=== PATIENT | female | born 1940 | race Caucasian/White ===

== ENCOUNTER → 2016-10-07 | Outpatient (REF) | payer OTHER ==
[~2016-10-07] MED LIST: ACET50TAOT PO; ADVA115A INH; ALBU17IN INH; ASPI1TAB PO; CRES20TA PO; CRES5TAB PO; DRIS50002 PO; FERR325T69 PO; FLON1SPR; FOLI1TAB2 PO; HYDR-3713 PO; INSULANT SC; LEVO75TA4 PO; LISI20TA3 PO; LOPE2CA PO; LORA10TA2 PO; METH2.5TA PO; METO25TAB PO; OMEP20CA3 PO; PAXI30TA11 PO; SULF500T2 PO; TRAM50TA2 PO; VITA-121 PO; VOLT1GEL24 TD; ZOFR4TAB3 PO
== END ==
LOC: M LABDRAW1 17:25
PROVIDERS: ATTEND Physician Assistant
DX: E87.5 Hyperkalemia (principal)

== ENCOUNTER → 2016-11-13 | Outpatient (CLI) | payer OTHER ==
[2016-11-13 15:42] LABS: CALCIUM LEVEL 8.5 MG/DL (8.8-10.2); CREATININE FOR GFR 1.14 MG/DL (0.55-1.02); GLOMERULAR FILTRATION RATE 49.3 (>39); POTASSIUM SERUM 5.1 MEQ/L (3.5-5.1)
== END ==
LOC: M LAB 14:53
PROVIDERS: ATTEND Internal Medicine Endocrinology, Diabetes & Metabolism
DX: E87.5 Hyperkalemia (principal)

== ENCOUNTER → 2016-11-22 | Outpatient (CLI) | payer OTHER ==
[2016-11-22 18:15] LABS: CALCIUM LEVEL 8.6 MG/DL (8.8-10.2); CREATININE FOR GFR 1.2 MG/DL (0.55-1.02); GLOMERULAR FILTRATION RATE 46.5 (>39); POTASSIUM SERUM 4.9 MEQ/L (3.5-5.1)
== END ==
LOC: M LAB 15:19
PROVIDERS: ATTEND Family Medicine
DX: E87.5 Hyperkalemia (principal)

== ENCOUNTER → 2017-01-16 | Outpatient (CLI) | payer OTHER ==
--- NOTE | 2017-01-17 04:57 | REP ---
Clinical: Cirrhosis. Technique: Real time gomez scale evaluation using curved array transducer. Findings: The liver demonstrates fatty infiltration without focal hepatic lesion. The patient is status post cholecystectomy. No biliary ductal dilatation is appreciated and the common bile duct measures 6.9 mm diameter. The pancreas is normal in appearance. The right kidney is normal in reniform shape without hydronephrosis and measures 9.2 x 5.5 x 4.3 cm. No ascites. Impression: Fatty infiltration and hepatocellular disease without focal hepatic lesion. Signed by Damon Gao MD 01/17/2017 04:48 A
== END ==
LOC: M RAD 07:57
PROVIDERS: ATTEND Hospitalist
DX: K74.60 Unspecified cirrhosis of liver (principal)

== ENCOUNTER → 2017-01-21 | Outpatient (REF) | payer OTHER ==
[2017-01-21 20:45] LABS: CALCIUM LEVEL 8.7 MG/DL (8.8-10.2); CREATININE FOR GFR 1.25 MG/DL (0.55-1.02); GLOMERULAR FILTRATION RATE 44.4 (>39); POTASSIUM SERUM 5.1 MEQ/L (3.5-5.1)
== END ==
LOC: M SFHCLERA 16:12
PROVIDERS: ATTEND Family Medicine
DX: R60.0 Localized edema (principal)
CPT/HCPCS: 80048; G0463

== ENCOUNTER → 2017-01-30 | Outpatient (REF) | payer OTHER ==
[2017-01-30 17:08] LABS: MEAN CORPUSCULAR HEMOGLOBIN 29.3 pg (27.0-33.0); MEAN CORPUSCULAR HGB CONC 31.4 g/dl (32.0-36.5); MEAN CORPUSCULAR VOLUME 93.4 fl (80.0-96.0); RED CELL DISTRIBUTION WIDTH 15.4 % (11.5-14.5); WHITE BLOOD COUNT 6.1 K/mm3 (4.0-10.0)
[2017-01-30 17:20] LABS: ALBUMIN 3.6 GM/DL (3.2-5.2); BILIRUBIN,TOTAL 0.3 MG/DL (0.2-1.0); CALCIUM LEVEL 8.9 MG/DL (8.8-10.2); CREATININE FOR GFR 1.51 MG/DL (0.55-1.02); GLOMERULAR FILTRATION RATE 35.7 (>39); POTASSIUM SERUM 5.1 MEQ/L (3.5-5.1); TOTAL PROTEIN 7.2 GM/DL (6.4-8.2)
[2017-02-02 00:06] LABS: Lyme Disease IgG/IgM Antibodie <0.91 ISR (0.00-0.90); Lyme Disease IgM Ab Quantitati <0.80 index (0.00-0.79)
== END ==
LOC: M SFHCLERA 11:40
PROVIDERS: ATTEND Family Medicine
DX: R60.0 Localized edema (principal); E11.22 Type 2 diabetes mellitus with diabetic chronic kidney disease; E11.69 Type 2 diabetes mellitus with other specified complication; E03.9 Hypothyroidism, unspecified; I15.0 Renovascular hypertension; Z79.899 Other long term (current) drug therapy
CPT/HCPCS: 80053; 80061; 83036; 83880; 84443; 85027; 86617; G0463

== ENCOUNTER → 2017-02-03 | Outpatient (REF) | payer OTHER | LOC: M SFHCLERA 15:22 | PROVIDERS: ATTEND Family Medicine | DX: I15.0 Renovascular hypertension (principal) ==

== ENCOUNTER → 2017-07-03 | Outpatient (REF) | payer OTHER ==
[~2017-07-03] MED LIST changes: -FOLI1TAB2 PO; +FOLI1TAB4 PO; +VOLT1GEL15 TD; -VOLT1GEL24 TD
[2017-07-03 21:32] LABS: CREATININE FOR GFR 1.12 MG/DL (0.55-1.02); GLOMERULAR FILTRATION RATE 50.2 (>39); MAGNESIUM LEVEL 1.5 MG/DL (1.8-2.4)
[2017-07-03 21:38] LABS: POTASSIUM SERUM 5.2 MEQ/L (3.5-5.1)
== END ==
LOC: M SFHCLERA 16:13
PROVIDERS: ATTEND Family Medicine
DX: I10 Essential (primary) hypertension (principal)

== ENCOUNTER → 2017-07-29 | Outpatient (REF) | payer OTHER ==
[2017-07-29 19:06] LABS: CALCIUM LEVEL 8.7 MG/DL (8.8-10.2); CREATININE FOR GFR 0.99 MG/DL (0.55-1.02); GLOMERULAR FILTRATION RATE 57.9 (>39); MAGNESIUM LEVEL 1.1 MG/DL (1.8-2.4); POTASSIUM SERUM 4.9 MEQ/L (3.5-5.1)
== END ==
LOC: M SFHCLERA 13:30
PROVIDERS: ATTEND Family Medicine
DX: I10 Essential (primary) hypertension (principal)

== ENCOUNTER → 2017-08-04 | Outpatient (CLI) | payer OTHER ==
--- NOTE | 2017-08-04 09:07 | REP ---
Clinical: Cirrhosis. Comparison: 01/16/2017. Technique: Briseno scale ultrasound using curved array transducer. Findings: The liver demonstrates fatty infiltration and/or hepatocellular disease without focal hepatic lesion. The spleen is mildly enlarged measuring 12 cm in length without focal abnormality. The pancreas is normal in in appearance. Prior cholecystectomy. No biliary ductal dilatation is appreciated, and the common bile duct measures 6.6 mm diameter. The bilateral kidneys are normal in reniform shape without hydronephrosis. The right kidney measures 8.6 x 4.1 x 4.5 cm; the left kidney measures 10.9 x 4.5 x 5.3 cm. No ascites. Visualized portions of the abdominal aorta normal. Impression: 1. Liver demonstrates fatty infiltration and/or hepatocellular disease without focal hepatic lesion. 2. Spleen is mildly enlarged but otherwise normal in appearance. Signed by Damon Gao MD 08/04/2017 08:58 A
== END ==
LOC: M RAD 08:11
PROVIDERS: ATTEND Hospitalist
DX: K74.60 Unspecified cirrhosis of liver (principal); K21.9 Gastro-esophageal reflux disease without esophagitis; K58.8 Other irritable bowel syndrome

== ENCOUNTER → 2017-10-28 | Outpatient (CLI) | payer OTHER ==
[2017-10-28 12:18] LABS: HEMATOCRIT 30.6 % (36.0-47.0); MEAN CORPUSCULAR HEMOGLOBIN 26.5 pg (27.0-33.0); MEAN CORPUSCULAR HGB CONC 29.4 g/dl (32.0-36.5); MEAN CORPUSCULAR VOLUME 90.3 fl (80.0-96.0); PLATELET COUNT, AUTOMATED 152 10^3/uL (150-450); RED BLOOD COUNT 3.39 10^6/uL (4.00-5.40); RED CELL DISTRIBUTION WIDTH 15.3 % (11.5-14.5)
[2017-10-28 12:32] LABS: INR 1.12; PROTHROMBIN TIME 14.6 SECONDS (12.4-14.5)
[2017-10-28 12:39] LABS: ERYTHROCYTE SEDIMENTATION RATE 60 mm/hr (0-30)
[2017-10-28 13:01] LABS: ALBUMIN 3.5 GM/DL (3.2-5.2); ALBUMIN/GLOBULIN RATIO 0.95 (1.00-1.93); ALKALINE PHOSPHATASE 90 U/L (45-117); ALT/SGPT 17 U/L (12-78); ANION GAP 8 MEQ/L (8-16); AST/SGOT 18 U/L (7-37); BILIRUBIN,TOTAL 0.2 MG/DL (0.2-1.0); BLOOD UREA NITROGEN 23 MG/DL (7-18); CALCIUM LEVEL 8.7 MG/DL (8.8-10.2); CARBON DIOXIDE LEVEL 26 MEQ/L (21-32); CHLORIDE LEVEL 109 MEQ/L (98-107); CREATININE FOR GFR 1.03 MG/DL (0.55-1.30); GLOMERULAR FILTRATION RATE 55.3 (>39); GLUCOSE, FASTING 107 MG/DL (70-100); POTASSIUM SERUM 4.4 MEQ/L (3.5-5.1); SODIUM LEVEL 143 MEQ/L (136-145); TOTAL PROTEIN 7.2 GM/DL (6.4-8.2)
== END ==
LOC: M ADMPAT 10:18
DX: Z01.818 Encounter for other preprocedural examination (principal); M17.11 Unilateral primary osteoarthritis, right knee; K74.60 Unspecified cirrhosis of liver; K22.8 Other specified diseases of esophagus; E78.00 Pure hypercholesterolemia, unspecified; I10 Essential (primary) hypertension; K58.9 Irritable bowel syndrome, unspecified
CPT/HCPCS: 71046

== ENCOUNTER → 2017-10-29 | Outpatient (REF) | payer OTHER ==
[2017-10-29 11:57] LABS: APPEARANCE, URINE HAZY (CLEAR); BACTERIA, URINE AUTO 3+ (NEGATIVE); BILIRUBIN, URINE AUTO NEGATIVE (NEGATIVE); BLOOD, URINE BLOOD NEGATIVE (NEGATIVE); COLOR, URINE YELLOW (YELLOW); GLUCOSE, URINE (UA) AUTO NEGATIVE (NEGATIVE); KETONE, URINE AUTO NEGATIVE (NEGATIVE); LEUKOCYTE ESTERASE, URINE AUTO 1+ (NEGATIVE); MUCUS, URINE SMALL (NEGATIVE); NITRITE, URINE AUTO POSITIVE (NEGATIVE); PROTEIN, URINE AUTO NEGATIVE (NEGATIVE); RBC, URINE AUTO 2 /HPF (0-3); SPECIFIC GRAVITY URINE AUTO 1.011 (1.002-1.035); SQUAMOUS EPITHELIAL CELL UR AU 1 /HPF (0-6); UROBILINOGEN, URINE AUTO 0.2 mg/dL (0.0-2.0); WBC, URINE AUTO 14 /HPF (0-3)
[2017-10-29 12:27] LABS: CREATININE, URINE 48.2 MG/DL; MAU/CREAT RATIO 18.6 MCG/MG (0.0-30.0)
== END ==
LOC: M SFHCLERA 10:52
DX: Z01.818 Encounter for other preprocedural examination (principal); M17.11 Unilateral primary osteoarthritis, right knee; D64.89 Other specified anemias; R70.0 Elevated erythrocyte sedimentation rate; Z79.82 Long term (current) use of aspirin; Z79.899 Other long term (current) drug therapy
CPT/HCPCS: 82043

== ENCOUNTER → 2017-11-04 | Outpatient (REF) | payer OTHER ==
[2017-11-04 17:27] LABS: BASO # 0.1 10^3/uL (0.0-0.2); BASO % 1.4 % (0.0-1.0); EOS # 0.2 10^3/uL (0.0-0.50); EOS % 3.9 % (0.0-3.0); HEMATOCRIT 30.3 % (36.0-47.0); IMMATURE GRANULOCYTE % 0.4 % (0-3.0); LYMPH # 1.7 10^3/uL (1.5-4.5); LYMPH % 35.6 % (24.0-44.0); MEAN CORPUSCULAR HEMOGLOBIN 26.9 pg (27.0-33.0); MEAN CORPUSCULAR HGB CONC 29.7 g/dl (32.0-36.5); MEAN CORPUSCULAR VOLUME 90.4 fl (80.0-96.0); MONO # 0.4 10^3/uL (0.0-0.8); NEUTROPHILS # 2.5 10^3/uL (1.8-7.7); NEUTROPHILS % 50.7 % (36.0-66.0); PLATELET COUNT, AUTOMATED 154 10^3/uL (150-450); RED BLOOD COUNT 3.35 10^6/uL (4.00-5.40); RED CELL DISTRIBUTION WIDTH 15.2 % (11.5-14.5); WHITE BLOOD COUNT 4.9 10^3/uL (4.0-10.0)
[2017-11-04 17:47] LABS: FERRITIN 9 NG/ML (8-252); IRON (FE) 52 UG/DL (50-170); PERCENT SATURATION 13.3 % (13.2-45.0); TOTAL IRON BINDING CAPACITY 390 UG/DL (250-450)
[2017-11-04 17:51] LABS: FOLATE 16.5 NG/ML; VITAMIN B12 LEVEL 489 PG/ML
[2017-11-04 18:48] LABS: ERYTHROCYTE SEDIMENTATION RATE 54 mm/hr (0-30)
== END ==
LOC: M SFHCLERA 10:50
DX: Z01.818 Encounter for other preprocedural examination (principal); D64.89 Other specified anemias
CPT/HCPCS: 82746

== ENCOUNTER 2017-11-10 09:51 | Outpatient (CLI) | payer OTHER ==
[2017-11-10] MEDS: IRON SUCROSE 100 MG in NS 100 ML IV (10:40)
== END 2017-11-10 12:35 | disposition home or self-care (01) ==
LOC: M INFU 09:51
DX: D50.9 Iron deficiency anemia, unspecified (principal); I12.9 Hypertensive chronic kidney disease with stage 1 through stage 4 chronic kidney disease, or unspecified chronic kidney disease; J45.909 Unspecified asthma, uncomplicated; E11.9 Type 2 diabetes mellitus without complications; N18.3 Chronic kidney disease, stage 3 (moderate); E78.5 Hyperlipidemia, unspecified; K21.9 Gastro-esophageal reflux disease without esophagitis; E03.9 Hypothyroidism, unspecified; K57.30 Diverticulosis of large intestine without perforation or abscess without bleeding; M12.9 Arthropathy, unspecified; K58.9 Irritable bowel syndrome, unspecified; Z79.4 Long term (current) use of insulin; Z79.899 Other long term (current) drug therapy; Z80.0 Family history of malignant neoplasm of digestive organs
CPT/HCPCS: J1756

== ENCOUNTER 2017-11-17 12:28 | Outpatient (CLI) | payer OTHER ==
[2017-11-17] MEDS: IRON SUCROSE 100 MG in NS 100 ML IV (12:48)
== END 2017-11-17 14:30 | disposition home or self-care (01) ==
LOC: M INFU 12:28
DX: D50.9 Iron deficiency anemia, unspecified (principal); E11.9 Type 2 diabetes mellitus without complications; E03.9 Hypothyroidism, unspecified; J45.909 Unspecified asthma, uncomplicated; N18.9 Chronic kidney disease, unspecified; K57.30 Diverticulosis of large intestine without perforation or abscess without bleeding; M19.90 Unspecified osteoarthritis, unspecified site; I49.9 Cardiac arrhythmia, unspecified; Z79.4 Long term (current) use of insulin; Z79.82 Long term (current) use of aspirin; Z79.899 Other long term (current) drug therapy; Z80.0 Family history of malignant neoplasm of digestive organs
CPT/HCPCS: J1756

== ENCOUNTER 2017-11-24 09:24 | Outpatient (CLI) | payer OTHER ==
[2017-11-24] MEDS: IRON SUCROSE 100 MG in NS 100 ML IV (09:55)
== END 2017-11-24 11:45 | disposition home or self-care (01) ==
LOC: M INFU 09:24
DX: D50.9 Iron deficiency anemia, unspecified (principal); K57.30 Diverticulosis of large intestine without perforation or abscess without bleeding; E11.9 Type 2 diabetes mellitus without complications; E03.9 Hypothyroidism, unspecified; J45.909 Unspecified asthma, uncomplicated; K58.0 Irritable bowel syndrome with diarrhea; Z79.82 Long term (current) use of aspirin; Z79.4 Long term (current) use of insulin; Z79.899 Other long term (current) drug therapy
CPT/HCPCS: J1756

== ENCOUNTER 2017-12-01 11:56 | Outpatient (CLI) | payer OTHER ==
[2017-12-01] MEDS: IRON SUCROSE 100 MG in NS 100 ML IV (12:31)
== END 2017-12-01 14:00 | disposition home or self-care (01) ==
LOC: M INFU 11:56
DX: D50.9 Iron deficiency anemia, unspecified (principal); J45.909 Unspecified asthma, uncomplicated; K57.30 Diverticulosis of large intestine without perforation or abscess without bleeding; N18.9 Chronic kidney disease, unspecified; E11.9 Type 2 diabetes mellitus without complications; M12.9 Arthropathy, unspecified; Z79.4 Long term (current) use of insulin; Z79.82 Long term (current) use of aspirin; Z79.899 Other long term (current) drug therapy; Z88.0 Allergy status to penicillin
CPT/HCPCS: J1756

== ENCOUNTER → 2017-12-03 | Outpatient (CLI) | payer OTHER ==
[2017-12-03 13:47] LABS: HEMATOCRIT 33.9 % (36.0-47.0); HEMOGLOBIN 10.3 g/dl (12.0-16.0); MEAN CORPUSCULAR HEMOGLOBIN 27.4 pg (27.0-33.0); MEAN CORPUSCULAR HGB CONC 30.4 g/dl (32.0-36.5); MEAN CORPUSCULAR VOLUME 90.2 fl (80.0-96.0); PLATELET COUNT, AUTOMATED 127 10^3/uL (150-450); RED BLOOD COUNT 3.76 10^6/uL (4.00-5.40); WHITE BLOOD COUNT 5.3 10^3/uL (4.0-10.0)
[2017-12-03 15:00] LABS: ERYTHROCYTE SEDIMENTATION RATE 42 mm/hr (0-30)
== END ==
LOC: M LAB 13:17
DX: M50.321 Other cervical disc degeneration at C4-C5 level (principal); M50.322 Other cervical disc degeneration at C5-C6 level; M50.323 Other cervical disc degeneration at C6-C7 level; D64.9 Anemia, unspecified; M06.09 Rheumatoid arthritis without rheumatoid factor, multiple sites; R70.0 Elevated erythrocyte sedimentation rate
CPT/HCPCS: 72040

== ENCOUNTER → 2017-12-21 | Outpatient (CLI) | payer OTHER ==
[2017-12-21 10:45] LABS: HEMATOCRIT 35.6 % (36.0-47.0); HEMOGLOBIN 10.9 g/dl (12.0-15.5); PLATELET COUNT, AUTOMATED 141 10^3/uL (150-450)
== END ==
LOC: M LAB 10:21
DX: Z01.812 Encounter for preprocedural laboratory examination (principal); M17.11 Unilateral primary osteoarthritis, right knee

== ENCOUNTER → 2017-12-29 | Outpatient (REF) | payer OTHER ==
[2017-12-29 14:37] LABS: INR 1.73; PROTHROMBIN TIME 20.8 SECONDS (12.4-14.5)
== END ==
LOC: M SHH 14:11
DX: Z51.81 Encounter for therapeutic drug level monitoring (principal); Z79.01 Long term (current) use of anticoagulants
CPT/HCPCS: 85610

== ENCOUNTER → 2018-01-05 | Outpatient (REF) | payer OTHER ==
[2018-01-05 11:57] LABS: INR 1.58; PROTHROMBIN TIME 19.3 SECONDS (12.4-14.5)
== END ==
LOC: M LABDRAW1 10:57
DX: Z79.01 Long term (current) use of anticoagulants (principal)
CPT/HCPCS: 85610

== ENCOUNTER → 2018-01-08 | Outpatient (REF) | payer OTHER ==
[2018-01-08 12:12] LABS: INR 1.56; PROTHROMBIN TIME 19.1 SECONDS (12.4-14.5)
== END ==
LOC: M SHH 11:42
DX: Z79.01 Long term (current) use of anticoagulants (principal)
CPT/HCPCS: 85610

== ENCOUNTER → 2018-01-12 | Outpatient (REF) | payer OTHER ==
[2018-01-12 12:15] LABS: INR 1.27; PROTHROMBIN TIME 16.2 SECONDS (12.4-14.5)
== END ==
LOC: M SHH 11:48
DX: Z79.01 Long term (current) use of anticoagulants (principal)
CPT/HCPCS: 85610

== ENCOUNTER → 2018-01-16 | Outpatient (REF) | payer OTHER ==
[2018-01-16 13:30] LABS: PROTHROMBIN TIME 23.3 SECONDS (12.4-14.5)
== END ==
LOC: M SHH 12:45
DX: Z51.81 Encounter for therapeutic drug level monitoring (principal); Z79.01 Long term (current) use of anticoagulants
CPT/HCPCS: 85610

== ENCOUNTER → 2018-01-19 | Outpatient (REF) | payer OTHER ==
[2018-01-19 15:11] LABS: INR 1.95; PROTHROMBIN TIME 22.9 SECONDS (12.4-14.5)
== END ==
LOC: M SHH 14:46
DX: Z51.81 Encounter for therapeutic drug level monitoring (principal); Z79.01 Long term (current) use of anticoagulants
CPT/HCPCS: 85610

== ENCOUNTER → 2018-03-23 | Outpatient (CLI) | payer OTHER ==
[2018-03-23 15:03] LABS: BASO # 0.1 10^3/uL (0.0-0.2); BASO % 1.5 % (0.0-1.0); EOS # 0.2 10^3/uL (0.0-0.50); EOS % 3.3 % (0.0-3.0); HEMATOCRIT 36.6 % (36.0-47.0); HEMOGLOBIN 11.3 g/dl (12.0-15.5); IMMATURE GRANULOCYTE % 0.3 % (0-3.0); LYMPH # 2.4 10^3/uL (1.5-4.5); LYMPH % 35.7 % (24.0-44.0); MEAN CORPUSCULAR HEMOGLOBIN 28.4 pg (27.0-33.0); MEAN CORPUSCULAR HGB CONC 30.9 g/dl (32.0-36.5); MONO # 0.5 10^3/uL (0.0-0.8); MONO % 7.6 % (0.0-5.0); NEUTROPHILS # 3.5 10^3/uL (1.8-7.7); NEUTROPHILS % 51.6 % (36.0-66.0); PLATELET COUNT, AUTOMATED 170 10^3/uL (150-450); RED BLOOD COUNT 3.98 10^6/uL (4.00-5.40); RED CELL DISTRIBUTION WIDTH 16.1 % (11.5-14.5); WHITE BLOOD COUNT 6.7 10^3/uL (4.0-10.0)
[2018-03-23 15:17] LABS: INR 1.12; PROTHROMBIN TIME 14.6 SECONDS (12.1-14.4)
[2018-03-23 15:18] LABS: PARTIAL THROMBOPLASTIN TIME 40.1 SECONDS (25.4-37.6)
[2018-03-23 15:28] LABS: ALBUMIN 3.7 GM/DL (3.2-5.2); ALKALINE PHOSPHATASE 144 U/L (45-117); ALT/SGPT 42 U/L (12-78); ANION GAP 4 MEQ/L (8-16); AST/SGOT 31 U/L (7-37); BILIRUBIN,TOTAL 0.3 MG/DL (0.2-1.0); BLOOD UREA NITROGEN 38 MG/DL (7-18); CARBON DIOXIDE LEVEL 25 MEQ/L (21-32); CHLORIDE LEVEL 115 MEQ/L (98-107); CREATININE FOR GFR 1.37 MG/DL (0.55-1.30); GLOMERULAR FILTRATION RATE 39.8 (>39); GLUCOSE, FASTING 82 MG/DL (70-100); SODIUM LEVEL 144 MEQ/L (136-145); TOTAL PROTEIN 7.4 GM/DL (6.4-8.2)
== END ==
LOC: M LAB 14:26
DX: K74.60 Unspecified cirrhosis of liver (principal)
CPT/HCPCS: 80053

== ENCOUNTER → 2018-03-30 | Outpatient (CLI) | payer OTHER | LOC: M RAD 08:59 | DX: K74.60 Unspecified cirrhosis of liver (principal) | CPT/HCPCS: 76705 ==

== ENCOUNTER → 2018-06-03 | Outpatient (CLI) | payer OTHER | LOC: M LRY 14:18 | DX: M25.561 Pain in right knee (principal); Z96.651 Presence of right artificial knee joint | CPT/HCPCS: 73564; G0463 ==

== ENCOUNTER → 2018-07-16 | Outpatient (REF) | payer OTHER | LOC: M SFHCLERA 08:42 | DX: F34.1 Dysthymic disorder (principal); E03.8 Other specified hypothyroidism ==

== ENCOUNTER 2018-10-24 20:12 | Emergency (ER) | payer MEDICARE, OTHER ==
[~2018-10-24] VITALS: Ht 170.2 cm; Wt 82.3 kg
[~2018-10-24 20:12] MED LIST changes: +ACET500T15 PO; -ACET50TAOT PO; +BENT10CA PO; +COUM2.5T17 PO; -DRIS50002 PO; +DRIS50003 PO; +FOLI1TAB11 PO; -FOLI1TAB4 PO; +LORA-243 PO; -LORA10TA2 PO; +METH2.5T48 PO; -METH2.5TA PO; +NOVOINJ3 SC; +PERC5TAB12 PO; +ZOFR4TAB14 PO; -ZOFR4TAB3 PO
[2018-10-24] MEDS ORDERED: NS 500 ML IV ONE ×3 (20:45→23:00)
[2018-10-24 21:06] LABS: BASO % 0.4 % (0.0-1.0); EOS # 0.1 10^3/uL (0.0-0.50); EOS % 0.9 % (0.0-3.0); HEMATOCRIT 34.2 % (36.0-47.0); HEMOGLOBIN 11.2 g/dl (12.0-15.5); LYMPH # 1.1 10^3/uL (1.5-4.5); LYMPH % 13.2 % (24.0-44.0); MEAN CORPUSCULAR HEMOGLOBIN 30.9 pg (27.0-33.0); MEAN CORPUSCULAR HGB CONC 32.7 g/dl (32.0-36.5); MEAN CORPUSCULAR VOLUME 94.5 fl (80.0-96.0); MONO # 0.5 10^3/uL (0.0-0.8); MONO % 6.2 % (0.0-5.0); NEUTROPHILS # 6.3 10^3/uL (1.8-7.7); NEUTROPHILS % 78.6 % (36.0-66.0); PLATELET COUNT, AUTOMATED 118 10^3/uL (150-450); RED BLOOD COUNT 3.62 10^6/uL (4.00-5.40)
[2018-10-24 21:38] LABS: ALBUMIN 3.3 GM/DL (3.2-5.2); BILIRUBIN,DIRECT 0.2 MG/DL (0.0-0.2); BILIRUBIN,TOTAL 0.4 MG/DL (0.2-1.0); CALCIUM LEVEL 8.3 MG/DL (8.8-10.2); CREATININE FOR GFR 1.48 MG/DL (0.55-1.30); FREE THYROXINE INDEX 2.9 % (1.3-4.8); GLOMERULAR FILTRATION RATE 36.3 (>39); INR 1.31; POTASSIUM SERUM 4.4 MEQ/L (3.5-5.1); PROTHROMBIN TIME 16.5 SECONDS (12.1-14.4); THYROID STIMULATING HORMONE 0.796 uIU/ML (0.358-3.740); THYROXINE (T4) 8.5 UG/DL (4.5-12.0)
[2018-10-24 21:39] LABS: PARTIAL THROMBOPLASTIN TIME 44.5 SECONDS (25.4-37.6)
[2018-10-24] MEDS ORDERED: ISOVUE-370 76% 100ML VIAL (Q9967) As Ordered ONE (21:46)
--- NOTE | 2018-10-24 22:23 | REPVR ---
EXAM: CT Head Without Contrast EXAM DATE/TIME: 10/24/2018 9:50 PM CLINICAL HISTORY: 78 years old, female; Injury or trauma; Fall; Additional info: Tr TECHNIQUE: Axial computed tomography images of the head/brain without contrast. All CT scans at this facility use at least one of these dose optimization techniques: automated exposure control; mA and/or kV adjustment per patient size (includes targeted exams where dose is matched to clinical indication); or iterative reconstruction. COMPARISON: No relevant prior studies available. FINDINGS: Brain: There is mild parenchymal volume loss. White matter changes are demonstrated in the subcortical, centrum semiovale and periventricular white matter consistent with small vessel white matter angiopathic gliosis. Ventricles: Normal. No ventriculomegaly. Bones/joints: Unremarkable. No acute fracture. Sinuses: Visualized sinuses are unremarkable. No acute sinusitis. Mastoid air cells: Visualized mastoid air cells are unremarkable. No mastoid effusion. Soft tissues: Unremarkable. IMPRESSION: There is mild parenchymal volume loss. White matter changes are demonstrated in the subcortical, centrum semiovale and periventricular white matter consistent with small vessel white matter angiopathic gliosis. Electronically signed by: Richard Ferrell On 10/24/2018 22:22:10 PM
--- NOTE | 2018-10-24 22:32 | REPVR ---
EXAM: CT Abdomen and Pelvis With Contrast EXAM DATE/TIME: 10/24/2018 9:50 PM CLINICAL HISTORY: 78 years old, female; Injury or trauma; Fall; Initial encounter; Blunt; Ruq; Additional info: Tr TECHNIQUE: Axial computed tomography images of the abdomen and pelvis with intravenous contrast. All CT scans at this facility use at least one of these dose optimization techniques: automated exposure control; mA and/or kV adjustment per patient size (includes targeted exams where dose is matched to clinical indication); or iterative reconstruction. Coronal and sagittal reformatted images were created and reviewed. CONTRAST: 100 ml of ISOVUE 370 administered intravenously. COMPARISON: CT ABD PELVIS WITH CONTRAST 07/13/2013 5:03 PM FINDINGS: Lower thorax: No acute findings. ABDOMEN: Liver: Examination of the liver demonstrates a lobular surface contour, and enlargement of the left and caudate lobes, findings consistent with cirrhosis. Gallbladder and bile ducts: There has been a cholecystectomy. Pancreas: There is diffuse pancreatic atrophy. Spleen: Mild splenomegaly with spleen measuring 14 cm. No focal abnormality. Adrenals: Normal. No mass. Kidneys and ureters: Normal. No hydronephrosis. Stomach and bowel: Normal. No obstruction. No mucosal thickening. Appendix: No evidence of appendicitis. PELVIS: Bladder: Unremarkable as visualized. Reproductive: Stop hysterectomy small air locules within the bladder likely iatrogenic. Clinical correlation to exclude infection suggested. ABDOMEN and PELVIS: Intraperitoneal space: Normal. No free air. No significant fluid collection. Bones/joints: The spine demonstrates moderate degenerative changes. Mild to moderate central spinal stenosis at L2-3, moderate to severe central spinal stenosis at L3-4, severe central spinal stenosis at L4-5 and L5-S1. Soft tissues: Recanalized paraumbilical veins. Post systemic collaterals involving the splenorenal and perirectal veins. Vasculature: The aorta demonstrates mild atherosclerotic calcification. Lymph nodes: Normal. No enlarged lymph nodes. IMPRESSION: 1. Examination of the liver demonstrates a lobular surface contour, and enlargement of the left and caudate lobes, findings consistent with cirrhosis. 2. Mild splenomegaly with spleen measuring 14 cm. No focal abnormality. 3. There is diffuse pancreatic atrophy. 4. There has been a cholecystectomy. Electronically signed by: Richard Ferrell On 10/24/2018 22:31:55 PM
[2018-10-24 23:49] LABS: APPEARANCE, URINE HAZY (CLEAR); BACTERIA, URINE AUTO NEGATIVE (NEGATIVE); BILIRUBIN, URINE AUTO NEGATIVE (NEGATIVE); BLOOD, URINE BLOOD 2+ (NEGATIVE); COLOR, URINE YELLOW (YELLOW); GLUCOSE, URINE (UA) AUTO NEGATIVE (NEGATIVE); KETONE, URINE AUTO NEGATIVE (NEGATIVE); LEUKOCYTE ESTERASE, URINE AUTO 3+ (NEGATIVE); MUCUS, URINE SMALL (NEGATIVE); NITRITE, URINE AUTO POSITIVE (NEGATIVE); PROTEIN, URINE AUTO NEGATIVE (NEGATIVE); RBC, URINE AUTO 21 /HPF (0-3); SPECIFIC GRAVITY URINE AUTO 1.033 (1.002-1.035); SQUAMOUS EPITHELIAL CELL UR AU 0 /HPF (0-6); TRANSITIONAL EPITHELIAL AUTO <1 /HPF; UROBILINOGEN, URINE AUTO 0.2 mg/dL (0.0-2.0); WBC, URINE AUTO 163 /HPF (0-3)
[2018-10-25] MEDS ORDERED: CIPROFLOXACIN 400 MG in APPROPRIATE DILUENT 1 EA IV ONE ×2
[2018-10-25] MEDS ORDERED: CIPR-249 PO (01:30)
[2018-10-25 01:37] VITALS: BP 113/56
--- NOTE | 2018-10-27 09:21 | ED PDOC ---
Post-Departure Follow-Up ct abd/p faxed to dr hutton for fu Heidi Wise MD Oct 27, 2018 09:21
== END 2018-10-25 01:55 | disposition home or self-care (01) ==
LOC: M ED 20:12
DX: E86.0 Dehydration (principal); N39.0 Urinary tract infection, site not specified; I10 Essential (primary) hypertension; E11.9 Type 2 diabetes mellitus without complications; E78.5 Hyperlipidemia, unspecified; E03.9 Hypothyroidism, unspecified; J44.9 Chronic obstructive pulmonary disease, unspecified; K74.60 Unspecified cirrhosis of liver; J40 Bronchitis, not specified as acute or chronic; Z96.651 Presence of right artificial knee joint; Z91.81 History of falling; Z88.0 Allergy status to penicillin; Z79.899 Other long term (current) drug therapy; Z79.4 Long term (current) use of insulin
CPT/HCPCS: 70450; 74177; 80048; 80076; 81001; 82140; 83605; 84436; 84443; 84479; 85025; 85610; 85730; 87088; 87186; 96374; 99284; J0744; Q9967

== ENCOUNTER → 2018-11-16 | Outpatient (REF) | payer MEDICARE ==
[~2018-11-16] MED LIST changes: +CIPR-249 PO
[2018-11-16 17:54] LABS: ALBUMIN 3.5 GM/DL (3.2-5.2); BILIRUBIN,TOTAL 0.4 MG/DL (0.2-1.0); CALCIUM LEVEL 8.3 MG/DL (8.8-10.2); CHOLESTEROL RISK RATIO 2.882 (<5); CREATININE FOR GFR 1.23 MG/DL (0.55-1.30); POTASSIUM SERUM 4.2 MEQ/L (3.5-5.1); THYROID STIMULATING HORMONE 1.08 uIU/ML (0.358-3.740); TOTAL PROTEIN 7.5 GM/DL (6.4-8.2)
== END ==
LOC: M SFHCLERA 14:56
PROVIDERS: ATTEND Family Medicine
DX: I10 Essential (primary) hypertension (principal); E03.8 Other specified hypothyroidism
CPT/HCPCS: 80053; 80061; 84443; G0463

== ENCOUNTER → 2018-12-11 | Outpatient (REF) | payer MEDICARE ==
[2018-12-11 20:14] LABS: BASO # 0.1 10^3/uL (0.0-0.2); BASO % 0.9 % (0.0-1.0); EOS # 0.2 10^3/uL (0.0-0.50); EOS % 3.1 % (0.0-3.0); HEMATOCRIT 35.6 % (36.0-47.0); HEMOGLOBIN 11.5 g/dl (12.0-15.5); LYMPH % 34.8 % (24.0-44.0); MEAN CORPUSCULAR HEMOGLOBIN 30.7 pg (27.0-33.0); MEAN CORPUSCULAR HGB CONC 32.3 g/dl (32.0-36.5); MEAN CORPUSCULAR VOLUME 95.2 fl (80.0-96.0); MONO # 0.4 10^3/uL (0.0-0.8); MONO % 7.5 % (0.0-5.0); NEUTROPHILS # 3.1 10^3/uL (1.8-7.7); NEUTROPHILS % 53.4 % (36.0-66.0); PLATELET COUNT, AUTOMATED 122 10^3/uL (150-450); RED BLOOD COUNT 3.74 10^6/uL (4.00-5.40); WHITE BLOOD COUNT 5.7 10^3/uL (4.0-10.0)
== END ==
LOC: M SFHCLERA 16:23
PROVIDERS: ATTEND Nurse Practitioner Family
DX: D64.9 Anemia, unspecified (principal)

== ENCOUNTER → 2019-01-08 | Outpatient (CLI) | payer MEDICARE ==
[~2019-01-08] MED LIST changes: -ASPI1TAB PO; +ASPI81TA26 PO; -CRES20TA PO; +CRES20TA2 PO; +METO1TAB63 PO; -METO25TAB PO
--- NOTE | 2019-01-08 09:31 | REP ---
RIGHT UPPER QUADRANT ULTRASOUND: Real-time sonographic evaluation of the right upper quadrant performed. The patient has had a prior cholecystectomy. Common bile duct measures 11 mm. This appears similar to CT of 10/21/2018. Echotexture is diffusely heterogeneous with no mass. There may be diffuse fibrofatty infiltration. No gross pancreatic abnormality is seen, with limited visualization due to overlying bowel gas. Right kidney demonstrates no hydronephrosis with an extrarenal pelvis. Length is 9.7 cm. There is no ascites. IMPRESSION: Status post cholecystectomy. Common bile duct measures 11 mm as expected in a patient of this age status post cholecystectomy. There is diffuse heterogeneous increased echotexture of the liver suggesting diffuse fibrofatty infiltration, with no gross mass. Electronically Signed by Selvin Briseno MD 01/08/2019 12:45 P
== END ==
LOC: M RAD 08:14
PROVIDERS: ATTEND Hospitalist
DX: K74.60 Unspecified cirrhosis of liver (principal); Z90.49 Acquired absence of other specified parts of digestive tract

== ENCOUNTER → 2019-02-24 | Outpatient (REF) | payer MEDICARE ==
[2019-02-24 17:10] LABS: CALCIUM LEVEL 8.6 MG/DL (8.8-10.2); CREATININE FOR GFR 1.16 MG/DL (0.55-1.30); GLOMERULAR FILTRATION RATE 48.1 (>39); POTASSIUM SERUM 4.9 MEQ/L (3.5-5.1); THYROID STIMULATING HORMONE 1.01 uIU/ML (0.358-3.740)
[2019-02-24 17:33] LABS: BASO # 0.1 10^3/uL (0.0-0.2); BASO % 1.5 % (0.0-1.0); EOS # 0.2 10^3/uL (0.0-0.50); EOS % 3.3 % (0.0-3.0); HEMATOCRIT 34.4 % (36.0-47.0); HEMOGLOBIN 10.6 g/dl (12.0-15.5); LYMPH # 1.7 10^3/uL (1.5-4.5); LYMPH % 33.7 % (24.0-44.0); MEAN CORPUSCULAR HEMOGLOBIN 30.2 pg (27.0-33.0); MEAN CORPUSCULAR HGB CONC 30.8 g/dl (32.0-36.5); MONO # 0.5 10^3/uL (0.0-0.8); MONO % 9.5 % (0.0-5.0); NEUTROPHILS # 2.7 10^3/uL (1.8-7.7); NEUTROPHILS % 51.8 % (36.0-66.0); PLATELET COUNT, AUTOMATED 116 10^3/uL (150-450); RED BLOOD COUNT 3.51 10^6/uL (4.00-5.40); WHITE BLOOD COUNT 5.2 10^3/uL (4.0-10.0)
== END ==
LOC: M SFHCLERA 12:22
PROVIDERS: ATTEND Family Medicine
DX: R42 Dizziness and giddiness (principal)
CPT/HCPCS: 80048; 84443; 85025; G0463

== ENCOUNTER → 2019-03-12 | Outpatient (CLI) | payer MEDICARE ==
[~2019-03-12] MED LIST changes: -OMEP20CA3 PO; +OMEP20CA4 PO
--- NOTE | 2019-03-12 12:35 | REP ---
Clinical: Vertigo Technique: Briseno scale and color Doppler evaluation using linear high frequency transducer Findings: Two-dimensional briseno scale and color images demonstrate mild mixed atheromatous plaquing with normal laminar flow and no appreciable narrowing. Color Doppler interrogation demonstrates normal arterial wave patterns and velocities with scattered spectral broadening. Normal flow direction is appreciated in the bilateral vertebral arteries. RIGHT (cm/s) LEFT (cm/s) ICA peak systolic velocity 88.5 63.8 ICA diastolic velocity 19.1 18.5 ECA peak systolic velocity 119.4 103.2 CCA peak systolic velocity 87.4 84.5 ICA/CCA ratio 1.0 0.8 Impression: No hemodynamically significant areas of narrowing or stenosis appreciated. Based on set standards narrowing falls within the less than 50% range. Electronically Signed by Damon Gao MD 03/12/2019 12:27 P
== END ==
LOC: M RAD 10:42
PROVIDERS: ATTEND Family Medicine
DX: R42 Dizziness and giddiness (principal); R55 Syncope and collapse

== ENCOUNTER 2019-04-13 11:16 | Outpatient (RCR) | payer MEDICARE | END 2019-04-14 | LOC: M PT 11:16 | PROVIDERS: ATTEND Family Medicine | DX: R42 Dizziness and giddiness (principal) ==

== ENCOUNTER 2019-04-21 15:04 | Outpatient (RCR) | payer MEDICARE ==
[~2019-04-21 15:04] MED LIST changes: +LISI20TA20 PO; -LISI20TA3 PO
== END 2019-05-15 ==
LOC: M PT 15:04
PROVIDERS: ATTEND Family Medicine
DX: R42 Dizziness and giddiness (principal)

== ENCOUNTER → 2019-07-27 | Outpatient (CLI) | payer MEDICARE ==
[~2019-07-27] MED LIST changes: +OMEP-172 PO; -OMEP20CA4 PO
[2019-07-27 11:26] LABS: BASO % 0.8 % (0.0-1.0); EOS # 0.1 10^3/uL (0.0-0.5); EOS % 3.4 % (0.0-3.0); HEMATOCRIT 34.5 % (36.0-47.0); HEMOGLOBIN 10.5 g/dl (12.0-15.5); LYMPH # 1.4 10^3/uL (1.5-5.0); LYMPH % 37.5 % (24.0-44.0); MEAN CORPUSCULAR HEMOGLOBIN 29.9 pg (27.0-33.0); MEAN CORPUSCULAR HGB CONC 30.4 g/dl (32.0-36.5); MEAN CORPUSCULAR VOLUME 98.3 fl (80.0-96.0); MONO # 0.3 10^3/uL (0.0-0.8); MONO % 7.6 % (0.0-5.0); NEUTROPHILS # 1.9 10^3/uL (1.5-8.5); NEUTROPHILS % 50.4 % (36.0-66.0); RED BLOOD COUNT 3.51 10^6/uL (4.00-5.40); WHITE BLOOD COUNT 3.8 10^3/uL (4.0-10.0)
[2019-07-27 11:27] LABS: PLATELET COUNT, AUTOMATED 98 10^3/uL (150-450)
[2019-07-27 11:37] LABS: INR 1.32; PROTHROMBIN TIME 16.1 SECONDS (11.8-14.0)
[2019-07-27 12:13] LABS: ALBUMIN 3.4 GM/DL (3.2-5.2); BILIRUBIN,TOTAL 0.4 MG/DL (0.2-1.0); CALCIUM LEVEL 8.7 MG/DL (8.8-10.2); CREATININE FOR GFR 1.26 MG/DL (0.55-1.30); GLOMERULAR FILTRATION RATE 43.6 (>39); TOTAL PROTEIN 7.1 GM/DL (6.4-8.2)
--- NOTE | 2019-07-28 03:08 | REP ---
Clinical: Cirrhosis. Technique: Real time gomez scale ultrasound examination using curved array transducer. Findings: The liver is moderately hyperechoic suggesting fatty infiltration. No focal hepatic lesion identified. Visualized portions of the pancreas are unremarkable but limited due to interposed bowel gas. Evidence of prior cholecystectomy noted. The common bile duct measures 6.3 mm diameter. The right kidney measures 10.1 x 4.8 x 5.2 cm with increased central sinus fat suggesting chronic medical renal disease. No evidence for hydronephrosis. No ascites. Impression: Hepatic steatosis. No focal hepatic lesion identified. Cholecystectomy. Electronically Signed by Damon Gao MD 07/28/2019 03:00 A
== END ==
LOC: M RAD 09:28
PROVIDERS: ATTEND Hospitalist
DX: Z01.812 Encounter for preprocedural laboratory examination (principal); K76.0 Fatty (change of) liver, not elsewhere classified; K74.60 Unspecified cirrhosis of liver; M47.27 Other spondylosis with radiculopathy, lumbosacral region; Z90.49 Acquired absence of other specified parts of digestive tract

== ENCOUNTER → 2019-07-27 | Outpatient (CLI) | payer MEDICARE ==
[~2019-07-27] MED LIST changes: -OMEP-172 PO; +OMEP20CA4 PO
[2019-07-27 11:27] LABS: PLATELET COUNT, AUTOMATED 95 10^3/uL (150-450)
[2019-07-27 11:36] LABS: INR 1.27; PROTHROMBIN TIME 15.6 SECONDS (11.8-14.0)
[2019-07-27 11:37] LABS: PARTIAL THROMBOPLASTIN TIME 41.5 SECONDS (25.0-38.4)
== END ==
LOC: M LAB 10:29
PROVIDERS: ATTEND Physical Medicine & Rehabilitation
DX: Z01.812 Encounter for preprocedural laboratory examination (principal); M47.27 Other spondylosis with radiculopathy, lumbosacral region

== ENCOUNTER → 2019-09-06 | Outpatient (CLI) | payer MEDICARE ==
[~2019-09-06] MED LIST changes: +OMEP-172 PO; -OMEP20CA4 PO
[2019-09-06 13:06] LABS: INR 1.3; PROTHROMBIN TIME 15.9 SECONDS (11.8-14.0)
== END ==
LOC: M LAB 11:49
PROVIDERS: ATTEND Orthopaedic Surgery
DX: Z01.812 Encounter for preprocedural laboratory examination (principal); M47.27 Other spondylosis with radiculopathy, lumbosacral region; Z79.51 Long term (current) use of inhaled steroids; Z79.4 Long term (current) use of insulin; Z79.899 Other long term (current) drug therapy

== ENCOUNTER → 2019-09-09 | Outpatient (CLI) | payer MEDICARE | LOC: M LAB 11:19 | PROVIDERS: ATTEND Orthopaedic Surgery | DX: Z01.812 Encounter for preprocedural laboratory examination (principal); Z79.01 Long term (current) use of anticoagulants ==

== ENCOUNTER → 2019-09-22 | Outpatient (REF) | payer MEDICARE | LOC: M SFHCLERA 16:55 | PROVIDERS: ATTEND Family Medicine | DX: D69.6 Thrombocytopenia, unspecified (principal); E11.8 Type 2 diabetes mellitus with unspecified complications; Z53.8 Procedure and treatment not carried out for other reasons ==

== ENCOUNTER → 2019-10-01 | Outpatient (REF) | payer MEDICARE ==
[~2019-10-01] MED LIST changes: -OMEP-172 PO; +OMEP1CAP73 PO
[2019-10-01 17:20] LABS: ALBUMIN 3.2 GM/DL (3.2-5.2); ALT/SGPT 24 U/L (12-78); BILIRUBIN,TOTAL 0.3 MG/DL (0.2-1.0); BLOOD UREA NITROGEN 21 MG/DL (7-18); CALCIUM LEVEL 8.4 MG/DL (8.8-10.2); CARBON DIOXIDE LEVEL 23 MEQ/L (21-32); CHLORIDE LEVEL 113 MEQ/L (98-107); CREATININE FOR GFR 1.23 MG/DL (0.55-1.30); GLOMERULAR FILTRATION RATE 44.8 (>39); GLUCOSE, FASTING 222 MG/DL (70-100); POTASSIUM SERUM 5.4 MEQ/L (3.5-5.1); SODIUM LEVEL 142 MEQ/L (136-145); TOTAL PROTEIN 6.4 GM/DL (6.4-8.2)
[2019-10-01 17:23] LABS: BASO # 0.1 10^3/uL (0.0-0.2); EOS # 0.2 10^3/uL (0.0-0.5); HEMATOCRIT 35.3 % (36.0-47.0); HEMOGLOBIN 10.6 g/dl (12.0-15.5); LYMPH # 1.8 10^3/uL (1.5-5.0); LYMPH % 36.4 % (24.0-44.0); MEAN CORPUSCULAR HEMOGLOBIN 29.3 pg (27.0-33.0); MEAN CORPUSCULAR VOLUME 97.5 fl (80.0-96.0); MONO # 0.4 10^3/uL (0.0-0.8); MONO % 7.3 % (0.0-5.0); NEUTROPHILS # 2.6 10^3/uL (1.5-8.5); NEUTROPHILS % 52.1 % (36.0-66.0); RED BLOOD COUNT 3.62 10^6/uL (4.00-5.40)
[2019-10-01 17:26] LABS: PLATELET COUNT, AUTOMATED 94 10^3/uL (150-450)
[2019-10-01 17:28] LABS: FOLATE > 24.0 NG/ML; VITAMIN B12 LEVEL 394 PG/ML
[2019-10-01 17:34] LABS: HEMOGLOBIN A1c 9.7 %
[2019-10-01 17:40] LABS: INR 1.35; PROTHROMBIN TIME 16.4 SECONDS (11.8-14.0)
[2019-10-01 17:41] LABS: PARTIAL THROMBOPLASTIN TIME 40.5 SECONDS (25.0-38.4)
[2019-10-04 11:23] LABS: HEPATITIS C VIRUS ABY INDEX < 0.0 INDEX (<0.8)
== END ==
LOC: M SFHCLERA 13:13
PROVIDERS: ATTEND Family Medicine
DX: D69.6 Thrombocytopenia, unspecified (principal); E11.8 Type 2 diabetes mellitus with unspecified complications

== ENCOUNTER → 2019-11-16 | Outpatient (REF) | payer MEDICARE ==
[2019-11-16 13:42] LABS: BASO # 0.1 10^3/uL (0.0-0.2); BASO % 1.5 % (0.0-1.0); EOS # 0.2 10^3/uL (0.0-0.5); EOS % 4.2 % (0.0-3.0); HEMATOCRIT 33.1 % (36.0-47.0); HEMOGLOBIN 10.3 g/dl (12.0-15.5); LYMPH # 1.7 10^3/uL (1.5-5.0); LYMPH % 34.7 % (24.0-44.0); MEAN CORPUSCULAR HEMOGLOBIN 29.9 pg (27.0-33.0); MEAN CORPUSCULAR HGB CONC 31.1 g/dl (32.0-36.5); MEAN CORPUSCULAR VOLUME 96.2 fl (80.0-96.0); MONO # 0.4 10^3/uL (0.0-0.8); MONO % 8.6 % (0.0-5.0); NEUTROPHILS # 2.4 10^3/uL (1.5-8.5); NEUTROPHILS % 50.8 % (36.0-66.0); PLATELET COUNT, AUTOMATED 110 10^3/uL (150-450); RED BLOOD COUNT 3.44 10^6/uL (4.00-5.40); WHITE BLOOD COUNT 4.8 10^3/uL (4.0-10.0)
[2019-11-16 13:59] LABS: INR 1.28; PROTHROMBIN TIME 15.7 SECONDS (11.8-14.0)
[2019-11-16 14:00] LABS: ALBUMIN 3.3 GM/DL (3.2-5.2); BILIRUBIN,TOTAL 0.4 MG/DL (0.2-1.0); CALCIUM LEVEL 8.5 MG/DL (8.8-10.2); CREATININE FOR GFR 1.01 MG/DL (0.55-1.30); GLOMERULAR FILTRATION RATE 56.3 (>39); PARTIAL THROMBOPLASTIN TIME 43.2 SECONDS (25.0-38.4); POTASSIUM SERUM 4.3 MEQ/L (3.5-5.1); TOTAL PROTEIN 6.8 GM/DL (6.4-8.2)
== END ==
LOC: M SFHCLERA 09:50
PROVIDERS: ATTEND Family Medicine
DX: D69.6 Thrombocytopenia, unspecified (principal); Z23 Encounter for immunization
CPT/HCPCS: 80053; 85025; 85610; 85730; 90670; 90682; G0008; G0009; G0463

== ENCOUNTER → 2019-11-22 | Outpatient (CLI) | payer MEDICARE ==
--- NOTE | 2019-11-22 14:49 | REP ---
COMPLETE ABDOMINAL SONOGRAPHY: HISTORY: Thrombocytopenia. FINDINGS: Scanning through the right upper quadrant of the abdomen demonstrates evidence of fatty infiltration of the liver. No focal liver lesion is seen. Liver is not felt to be enlarged. The gallbladder surgically absent. Common bile duct is normal post cholecystectomy at 0.8 cm. There is no visible ascites. No pancreatic abnormalities observed. The spleen measures 12.8 cm in greatest dimension. It is considered at the upper range of normal in size. No definite focal splenic lesion. Renal cortical echogenicity pattern is normal and contours are smooth. No hydronephrosis or renal mass is seen. The right kidney measures 10.2 x 5.2 x 4.6 cm. Left renal dimensions are 10.8 x 5.2 x 5.4 cm. Urinary bladder coelho are smooth. Calculated bladder volume is 114 mL. IMPRESSION: Evidence of fatty infiltration of the liver. Borderline spleen size. No evidence of ascites. Electronically Signed by Ant Dewey MD 11/22/2019 05:45 P
== END ==
LOC: M LRY 08:30
PROVIDERS: ATTEND Family Medicine
DX: R93.2 Abnormal findings on diagnostic imaging of liver and biliary tract (principal); D69.6 Thrombocytopenia, unspecified

== ENCOUNTER → 2020-02-17 | Outpatient (REF) | payer MEDICARE ==
[2020-02-17 16:40] LABS: BASO # 0.1 10^3/uL (0.0-0.2); BASO % 1.3 % (0.0-1.0); EOS # 0.2 10^3/uL (0.0-0.5); EOS % 4.9 % (0.0-3.0); HEMATOCRIT 34.6 % (36.0-47.0); HEMOGLOBIN 10.9 g/dl (12.0-15.5); LYMPH # 1.5 10^3/uL (1.5-5.0); LYMPH % 33.8 % (24.0-44.0); MEAN CORPUSCULAR HEMOGLOBIN 29.9 pg (27.0-33.0); MEAN CORPUSCULAR HGB CONC 31.5 g/dl (32.0-36.5); MEAN CORPUSCULAR VOLUME 94.8 fl (80.0-96.0); MONO # 0.3 10^3/uL (0.0-0.8); MONO % 6.6 % (0.0-5.0); NEUTROPHILS # 2.4 10^3/uL (1.5-8.5); PLATELET COUNT, AUTOMATED 113 10^3/uL (150-450); RED BLOOD COUNT 3.65 10^6/uL (4.00-5.40); WHITE BLOOD COUNT 4.5 10^3/uL (4.0-10.0)
[2020-02-17 16:50] LABS: ALBUMIN 3.3 GM/DL (3.2-5.2); BILIRUBIN,DIRECT 0.2 MG/DL (0.0-0.2); BILIRUBIN,TOTAL 0.4 MG/DL (0.2-1.0); CALCIUM LEVEL 8.6 MG/DL (8.8-10.2); CHOLESTEROL RISK RATIO 3.355 (<5); CREATININE FOR GFR 1.14 MG/DL (0.55-1.30); GLOMERULAR FILTRATION RATE 48.9 (>39); POTASSIUM SERUM 4.7 MEQ/L (3.5-5.1); THYROID STIMULATING HORMONE 0.839 uIU/ML (0.358-3.740); TOTAL PROTEIN 6.7 GM/DL (6.4-8.2)
== END ==
LOC: M SFHCLERA 11:34
PROVIDERS: ATTEND Family Medicine
DX: N18.3 Chronic kidney disease, stage 3 (moderate) (principal); E78.2 Mixed hyperlipidemia; D69.6 Thrombocytopenia, unspecified; K58.0 Irritable bowel syndrome with diarrhea; E03.8 Other specified hypothyroidism

== ENCOUNTER → 2020-06-07 | Outpatient (CLI) | payer MEDICARE ==
[~2020-06-07] MED LIST changes: +BASA100I SC; +DEPA1TAB3 PO; +DEPA250T32 PO; +DICY10CA13 PO; +LACT20EL PO; +LOPE-39 PO; +METO1TAB87 PO; +PARO40TA2 PO; +ROSU10TA6 PO; +VENTAER INH; +med rec comment
[2020-06-07 14:31] LABS: MAU/CREAT RATIO 59.3 MCG/MG (0.0-30.0)
[2020-06-07 14:42] LABS: ALBUMIN 3.2 GM/DL (3.2-5.2); BILIRUBIN,TOTAL 0.4 MG/DL (0.2-1.0); CALCIUM LEVEL 9.1 MG/DL (8.8-10.2); CHOLESTEROL RISK RATIO 2.74 (<5); CREATININE FOR GFR 1.1 MG/DL (0.55-1.30); FREE T4 0.93 NG/DL (0.76-1.46); MAGNESIUM LEVEL 1.2 MG/DL (1.8-2.4); POTASSIUM SERUM 4.2 MEQ/L (3.5-5.1); TOTAL PROTEIN 6.8 GM/DL (6.4-8.2)
[2020-06-07 14:43] LABS: PTH INTACT 85.2 PG/ML (18.5-88.0)
[2020-06-07 14:49] LABS: HEMOGLOBIN A1c 7.6 %
== END ==
LOC: M LAB 13:13
PROVIDERS: ATTEND Internal Medicine
DX: E03.8 Other specified hypothyroidism (principal); E55.9 Vitamin D deficiency, unspecified; E11.65 Type 2 diabetes mellitus with hyperglycemia; Z79.4 Long term (current) use of insulin; M85.80 Other specified disorders of bone density and structure, unspecified site

== ENCOUNTER 2020-06-30 12:37 | Emergency (ER) | payer MEDICARE ==
[~2020-06-30] VITALS: Ht 162.6 cm; Wt 90.9 kg
[~2020-06-30 12:37] MED LIST changes: -BASA100I SC; -DEPA1TAB3 PO; -DEPA250T32 PO; -DICY10CA13 PO; -LACT20EL PO; -LOPE-39 PO; -METO1TAB87 PO; -PARO40TA2 PO; -ROSU10TA6 PO; -VENTAER INH; -med rec comment
[2020-06-30 13:07] LABS: BASO # 0.1 10^3/uL (0.0-0.2); BASO % 1.1 % (0.0-1.0); EOS # 0.4 10^3/uL (0.0-0.5); EOS % 4.4 % (0.0-3.0); HEMATOCRIT 37.3 % (36.0-47.0); HEMOGLOBIN 11.6 g/dl (12.0-15.5); LYMPH # 4.3 10^3/uL (1.5-5.0); LYMPH % 50.7 % (24.0-44.0); MEAN CORPUSCULAR HEMOGLOBIN 29.7 pg (27.0-33.0); MEAN CORPUSCULAR HGB CONC 31.1 g/dl (32.0-36.5); MEAN CORPUSCULAR VOLUME 95.4 fl (80.0-96.0); MONO # 0.6 10^3/uL (0.0-0.8); MONO % 6.9 % (0.0-5.0); NEUTROPHILS # 3.1 10^3/uL (1.5-8.5); NEUTROPHILS % 36.4 % (36.0-66.0); PLATELET COUNT, AUTOMATED 156 10^3/uL (150-450); RED BLOOD COUNT 3.91 10^6/uL (4.00-5.40); WHITE BLOOD COUNT 8.4 10^3/uL (4.0-10.0)
[2020-06-30] MEDS ORDERED: NS 1,000 ML IV ONE (13:15)
--- NOTE | 2020-06-30 13:15 | REPVR ---
PROCEDURE INFORMATION: Exam: CT Head Without Contrast Exam date and time: 06/30/2020 12:59 PM Age: 80 years old Clinical indication: Altered mental status/memory loss TECHNIQUE: Imaging protocol: Computed tomography of the head without contrast. Radiation optimization: All CT scans at this facility use at least one of these dose optimization techniques: automated exposure control; mA and/or kV adjustment per patient size (includes targeted exams where dose is matched to clinical indication); or iterative reconstruction. COMPARISON: CT Head without contrast 10/24/2018 9:43 PM FINDINGS: Brain: There is no acute intracranial hemorrhage or mass effect. Mild diffuse volume loss is within the range of normal for patient age. There are small vessel ischemic changes within the periventricular and subcortical white matter, but the normal gomez/white matter delineation is maintained. Cerebral ventricles: No ventriculomegaly. Bones/joints: Unremarkable. No acute fracture. Paranasal sinuses: Visualized sinuses are unremarkable. No fluid levels. Mastoid air cells: Visualized mastoid air cells are well aerated. Soft tissues: Unremarkable. IMPRESSION: No acute hemorrhage or edema. Electronically signed by: Mikaela Rodriguez On 06/30/2020 13:15:15 PM
[2020-06-30] MEDS ORDERED: ONDANSETRON 4MG/2ML VIAL IV ONE (13:30)
[2020-06-30 13:43] LABS: ALBUMIN 3.5 GM/DL (3.2-5.2); BILIRUBIN,DIRECT 0.1 MG/DL (0.0-0.2); BILIRUBIN,TOTAL 0.4 MG/DL (0.2-1.0); THYROID STIMULATING HORMONE 1.85 uIU/ML (0.358-3.740); TOTAL PROTEIN 7.4 GM/DL (6.4-8.2)
[2020-06-30 15:17] LABS: PROLACTIN 33.1 NG/ML
[2020-06-30] MEDS ORDERED: VALPROATE SOD INJ 500 MG in D5W 50 ML IV ONE (16:00)
[2020-06-30] MEDS ORDERED: DEPA1TAB3 PO (17:27)
[2020-06-30 18:00] VITALS: BP 144/55
[2020-07-01] MEDS ORDERED: ROSU10TA6 PO (00:44)
[2020-07-01] MEDS ORDERED: DICY10CA13 PO (00:44)
[2020-07-01] MEDS ORDERED: BASA100I SC (00:44)
[2020-07-01] MEDS ORDERED: VENTAER INH (00:44)
[2020-07-01] MEDS ORDERED: PARO40TA2 PO (00:44)
[2020-07-01] MEDS ORDERED: LOPE-39 PO (00:44)
[2020-07-01] MEDS ORDERED: METO1TAB87 PO (00:44)
[2020-07-01] MEDS ORDERED: med rec comment (01:00)
--- NOTE | 2020-07-01 07:54 | ECGEPIP ---
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
== END 2020-06-30 18:17 | disposition home or self-care (01) ==
LOC: M ED 12:37
DX: R56.9 Unspecified convulsions (principal); E78.5 Hyperlipidemia, unspecified; I10 Essential (primary) hypertension; J45.909 Unspecified asthma, uncomplicated; M06.9 Rheumatoid arthritis, unspecified; Z88.0 Allergy status to penicillin
CPT/HCPCS: 70450; 80076; 82140; 82803; 83605; 84146; 84443; 85025; 87040; 93005; 93041; 96361; 96365; 96366; 96375; 99285; G0463; J2405

== ENCOUNTER 2020-06-30 19:51 | Observation (INO) | payer MEDICARE ==
[~2020-06-30] VITALS: Ht 170.2 cm; Wt 85.0 kg
[~2020-06-30 19:51] MED LIST changes: +DEPA1TAB3 PO
--- NOTE | 2020-06-30 20:24 | REPVR ---
PROCEDURE INFORMATION: Exam: CT Head Without Contrast Exam date and time: 06/30/2020 8:12 PM Age: 80 years old Clinical indication: Injury or trauma; Fall; Blunt trauma (contusions or hematomas); Consciousness not specified; Additional info: Head injury TECHNIQUE: Imaging protocol: Computed tomography of the head without contrast. Radiation optimization: All CT scans at this facility use at least one of these dose optimization techniques: automated exposure control; mA and/or kV adjustment per patient size (includes targeted exams where dose is matched to clinical indication); or iterative reconstruction. COMPARISON: CT Head without contrast 06/30/2020 12:55 PM FINDINGS: Brain: There is moderate age related parenchymal volume loss. White matter changes are demonstrated in the subcortical, centrum semiovale and periventricular white matter consistent with age related small vessel white matter angiopathic gliosis. Cerebral ventricles: The degree of ventricular dilatation is normal for age and/or degree of atrophy present. Bones/joints: Unremarkable. No acute fracture. Paranasal sinuses: Visualized sinuses are unremarkable. No fluid levels. Mastoid air cells: Visualized mastoid air cells are well aerated. Soft tissues: Unremarkable. IMPRESSION: 1. There is moderate age related parenchymal volume loss. White matter changes are demonstrated in the subcortical, centrum semiovale and periventricular white matter consistent with age related small vessel white matter angiopathic gliosis. 2. The degree of ventricular dilatation is normal for age and/or degree of atrophy present. 3. No acute intracranial findings. Electronically signed by: Richard Ferrell On 06/30/2020 20:24:03 PM
--- NOTE | 2020-06-30 20:30 | REPVR ---
PROCEDURE INFORMATION: Exam: CT Cervical Spine Without Contrast Exam date and time: 06/30/2020 8:12 PM Age: 80 years old Clinical indication: Injury or trauma; Fall; Blunt trauma; Additional info: Head injury TECHNIQUE: Imaging protocol: Computed tomography images of the cervical spine without contrast. Radiation optimization: All CT scans at this facility use at least one of these dose optimization techniques: automated exposure control; mA and/or kV adjustment per patient size (includes targeted exams where dose is matched to clinical indication); or iterative reconstruction. COMPARISON: CR Spine,Cervical 2 or 3 views 12/03/2017 1:40 PM FINDINGS: Vertebrae: Mild anterolisthesis of C3 on C4 and C4 on C5, findings which have been demonstrated on prior plain films of 12/03/2017. Discs/Spinal canal/Neural foramina: Disc space narrowing at C5-C6, C6-C7, and C7-T1 with intervertebral osteophytes. Mild bilateral foraminal narrowing at C4, severe bilateral foraminal narrowing at C5 and moderate bilateral foraminal narrowing at C6 secondary to uncinate joint hypertrophic changes. Central disc protrusion at C2-C3 effaces the subarachnoid space and abuts but does not compress the cervical cord. Small central disc protrusion at C3-C4 without cord impingement. Disc osteophyte complexes at C5-C6, C6-C7 and C7-T1 effaces the ventral subarachnoid space to varying degrees most pronounced at C5-C6 with mild to moderate cord impingement. Soft tissues: Unremarkable. Lungs: Lung apices are normal. IMPRESSION: Degenerative spondylosis. No acute findings. Electronically signed by: Richard Ferrell On 06/30/2020 20:30:11 PM
[2020-06-30] MEDS ORDERED: NS 500 ML IV ONE (20:45)
[2020-06-30] MEDS ORDERED: METOCLOPRAMIDE INJ 10MG/2ML VIAL (J2765 PER 1) IV ONE (20:45)
[2020-06-30 21:27] LABS: BASO % 0.7 % (0.0-1.0); EOS % 0.4 % (0.0-3.0); HEMATOCRIT 34.8 % (36.0-47.0); HEMOGLOBIN 10.8 g/dl (12.0-15.5); LYMPH # 0.8 10^3/uL (1.5-5.0); LYMPH % 14.7 % (24.0-44.0); MEAN CORPUSCULAR HEMOGLOBIN 29.9 pg (27.0-33.0); MEAN CORPUSCULAR VOLUME 96.4 fl (80.0-96.0); MONO # 0.2 10^3/uL (0.0-0.8); MONO % 3.9 % (0.0-5.0); NEUTROPHILS # 4.4 10^3/uL (1.5-8.5); NEUTROPHILS % 79.6 % (36.0-66.0); PLATELET COUNT, AUTOMATED 108 10^3/uL (150-450); RED BLOOD COUNT 3.61 10^6/uL (4.00-5.40); WHITE BLOOD COUNT 5.6 10^3/uL (4.0-10.0)
[2020-06-30 23:56] LABS: ACETAMINOPHEN LEVEL < 2.0 UG/ML (10.0-30.0); ALBUMIN 2.9 GM/DL (3.2-5.2); ALT/SGPT 15 U/L (12-78); BILIRUBIN,DIRECT 0.1 MG/DL (0.0-0.2); BILIRUBIN,TOTAL 0.4 MG/DL (0.2-1.0); BLOOD UREA NITROGEN 14 MG/DL (7-18); CALCIUM LEVEL 7.8 MG/DL (8.8-10.2); CARBON DIOXIDE LEVEL 25 MEQ/L (21-32); CHLORIDE LEVEL 112 MEQ/L (98-107); CK-MB VALUE MASS 2.2 NG/ML (<3.6); CPK CREATINE PHOSPHOKINASE 106 U/L (26-192); ETHYL ALCOHOL (ETHANOL) < 0.003 % (0.000-0.010); GLOMERULAR FILTRATION RATE 50.9 (>32); GLUCOSE, FASTING 140 MG/DL (70-100); MAGNESIUM LEVEL 1.2 MG/DL (1.8-2.4); MB/CK RELATIVE INDEX 2.08 (< OR =4); POTASSIUM SERUM 4.4 MEQ/L (3.5-5.1); SALICYLATE LEVEL < 1.7 MG/DL (5.0-30.0); SODIUM LEVEL 143 MEQ/L (136-145); TOTAL PROTEIN 6.2 GM/DL (6.4-8.2); TROPONIN I < 0.02 NG/ML (< 0.10)
[2020-07-01] MEDS ORDERED: MAG SULF 1GM/100ML (MAG RUN) 1 GM in IV 1 EA IV ONE (00:15)
[2020-07-01] MEDS ORDERED: LOPE-39 PO (00:44)
[2020-07-01] MEDS ORDERED: VENTAER INH (00:44)
[2020-07-01] MEDS ORDERED: BASA100I SC (00:44)
[2020-07-01] MEDS ORDERED: DICY10CA13 PO (00:44)
[2020-07-01] MEDS ORDERED: PARO40TA2 PO (00:44)
[2020-07-01] MEDS ORDERED: METO1TAB87 PO (00:44)
[2020-07-01] MEDS ORDERED: ROSU10TA6 PO (00:44)
[2020-07-01] MEDS ORDERED: ACETAMINOPHEN TAB 650MG DOSE (2X325MG) PO PRN (00:45)
--- NOTE | 2020-07-01 00:58 | HPEPDOC ---
General Date of Admission 07/01/20 Date of Service: Jul 01, 2020 Chief Complaint The patient is a 80-year-old female admitted with a reason for visit of Seizure. Source: Patient, Family Exam Limitations: No limitations Timing/Duration: 24 hours Associated Symptoms: Seizure History of Present Illness Patient is 80 years old female with past history of coronary artery diseases, asthma, hypothyroidism presented hospital with history of seizure. According to her patient developed seizure-like activities in the daytime, he described that patient stare on the wall and was unresponsive verbally. Patient did not remember this episode. Her stated that this period of unresponsiveness continued around 5 minutes. No shakiness of limbs were observed. Patient was brought to ER, Dr. Wills was contacted by phone and he recommended Depakote and dc home. At home patient developed syncope with loss of consciousness, she was unresponsive for a few minutes. Her stated that her eye was wide-open, no urinary or fecal incontinence. In ER patient was found to have on CT head no acute intracranial findings, no leukocytosis, magnesium 1, troponin negative, TSH within normal limit. Home Medications Scheduled Dicyclomine HCl (Dicyclomine HCl) 10 Mg Capsule, 10 MG PO QID, (Reported) Fluticasone Propion/Salmeterol (Advair Hfa 115-21 Mcg Inhaler) 1 Aer Aer, 2 PUFF INH BID, (Reported) Fluticasone Propionate (Flonase Allergy Relief) 50 Mcg/Act Spr, 1 SPRAY NA DAILY, (Reported) Insulin Aspart (Novolog Flexpen) 100 Unit/Ml Inj, 1 DOSE SC QID, (Reported) SLIDING SCALE WITH MEALS AND HS Insulin Glargine,Hum.rec.anlog (Basaglar Kwikpen U-100) 100 Unit/1 Ml Insuln.pen, 50 UNIT SC QHS, (Reported) Levothyroxine Sodium (Levothyroxine Sodium) 75 Mcg Tab, 75 MCG PO QAM, (Reported) Metoprolol Tartrate (Metoprolol Tartrate) 25 Mg Tablet, 25 MG PO BID, (Reported) Omeprazole (Omeprazole) 20 Mg Cap, 20 MG PO DAILY, (Reported) Paroxetine HCl (Paroxetine HCl) 40 Mg Tablet, 60 MG PO DAILY, (Reported) Rosuvastatin Calcium (Rosuvastatin Calcium) 10 Mg Tablet, 10 MG PO QHS, (Reported) Scheduled PRN Acetaminophen (Acetaminophen) 500 Mg Tab, 500 MG PO Q6H PRN for PAIN, (Reported) Albuterol Sulfate (Ventolin Hfa) 18 Gm Hfa.aer.ad, 2 PUFF INH Q4H PRN for SHORTNESS OF BREATH, (Reported) Loperamide HCl (Imodium A-D) 2 Mg Capsule, 2 MG PO BID PRN for DIARRHEA, (Reported) Miscellaneous Medications [med rec comment] , (Reported) patient and spouse unable to verify last dose and med list, used external hi story Allergies Coded Allergies: Penicillins (Verified Adverse Reaction, Unknown, nasuea and vomiting, 06/30/20) Past Medical History Medical History Asthma CAD w LAD and LCx dz / s/p CABG Anxiety/Depression Hypothyroidism Chronic Anemia Osteoporosis / Hx of L hip fx requiring THR Appendectomy Unspecified bladder surgery Nasal polypectomy Cholecystectomy Unsteady gait / uses walker Surgical History Appendectomy Unspecified bladder surgery Nasal polypectomy Cholecystectomy Unsteady gait / uses walker Family History I personally reviewed family history and found not pertinent Social History * Smoker: Denies Alcohol: Denies Drugs: denies A-FIB/CHADSVASC A-FIB History Current/History of A-Fib/PAF?: No Current PO Anticoag Therapy: No Review of Systems Constitutional: Denies: Chills, Fever Eyes: Denies: Pain ENT: Denies: Head Aches, Ear Pain Skin: Denies: Rash Pulmonary: Denies: Dyspnea Cardiovascular: Denies: Chest Pain, Palpitations Gastrointestinal: Denies: Nausea Genitourinary: Denies: Dysuria, Frequency Hematologic: Denies: Bruising Endocrine: Denies: Polydipsia, Polyphagia Musculoskeletal: Denies: Neck Pain Neurological: Reports: Seizures; Denies: Weakness Psych: Reports: Mood Normal Physical Examination General Exam: Negative: Alert, Cooperative Eye Exam: Negative: PERRLA ENT Exam: Negative: Atraumatic Neck Exam: Negative: Supple, JVD Chest Exam: Positive: Clear to auscultation Heart Exam: Positive: Rate Normal Telemetry: Positive: No significant arrhythmia Abdomen Exam: Positive: Normal bowel sounds Extremity Exam: Negative: Clubbing, Cyanosis Skin Exam: Positive: Nl turgor and temperature Neuro Exam: Positive: Strength at 5/5 X4 ext, Cranial Nerves 3-12 NL Psych Exam: Positive: Mental status NL Vital Signs Vital Signs Date Time Temp Pulse Resp B/P (MAP) Pulse Ox O2 Delivery O2 Flow Rate FiO2 06/30/20 20:01 83 16 159/72 95 Laboratory Data Labs 24H Laboratory Tests 2 06/30/20 21:15: Osmolality 293, Lactic Acid Level 3.0*H 06/30/20 21:19: Immature Granulocyte % (Auto) 0.7, Neutrophils (%) (Auto) 79.6H, Lymphocytes (%) (Auto) 14.7L, Monocytes (%) (Auto) 3.9, Eosinophils (%) (Auto) 0.4, Basophils (%) (Auto) 0.7, Neutrophils # (Auto) 4.4, Lymphocytes # (Auto) 0.8L, Monocytes # (Auto) 0.2, Eosinophils # (Auto) 0.0, Basophils # (Auto) 0.0, Nucleated Red Blood Cells % (auto) 0.0, Ammonia 54H 06/30/20 23:01: Anion Gap 6L, Glomerular Filtration Rate 50.9, Calcium Level 7.8L, Magnesium Level 1.2L, Total Bilirubin 0.4, Direct Bilirubin 0.1, Aspartate Amino Transf (AST/SGOT) 25, Alanine Aminotransferase (ALT/SGPT) 15, Alkaline Phosphatase 91, Total Creatine Kinase 106, Creatine Kinase MB 2.2, Creatine Kinase MB Relative Index 2.08, Troponin I < 0.02, Total Protein 6.2L, Albumin 2.9L, Albumin/Globulin Ratio 0.9L, Thyroid Stimulating Hormone (TSH) 2.090, [place] icylates Level < 1.7L, Acetaminophen Level < 2.0L, Ethyl Alcohol Level < 0.003 06/30/20 23:50: CBC/BMP Laboratory Tests 06/30/20 21:19 06/30/20 23:01 Assessment/Plan Patient is 80 years old female with past history of coronary artery diseases, asthma, hypothyroidism presented hospital with history of seizure. According to her patient developed seizure-like activities in the daytime, he described that patient stare on the wall and was unresponsive verbally. Patient did not remember this episode. Her stated that this period of unresponsiveness continued around 5 minutes. No shakiness of limbs were observed. Patient was brought to ER, Dr. Wills was contacted by phone and he recommended Depakote and wi home. At home patient developed syncope with loss of consciousness, she was unresponsive for a few minutes. Her stated that her eye was wide-open, no urinary or fecal incontinence. In ER patient was found to have on CT head no acute intracranial findings, no leukocytosis, magnesium 1, troponin negative, TSH within normal limit. Problems (1) Seizure Status: Acute Problem Text: Consider consult neurologist in the morning Patient had 3 seizure-like activity for past [address] Wills recommended Depakote by mouth CT head negative (2) Hypomagnesemia Status: Acute Problem Text: Replaced (3) Syncope Status: Acute Problem Text: It's unclear, did patient developed syncope or it was absence seizure. Her found her on the floor with wide-open eyes and unresponsive verbally Telemetry Echo (4) Asthma Status: Chronic Problem Text: Continue inhalers Not in acute exacerbation (5) Diabetes Status: Chronic Problem Text: Diabetes diet Insulin sliding scale (6) Hypertension Status: Chronic Problem Text: Blood pressure under control Continue home cardioprotective medication (7) Coronary artery disease Status: Chronic Problem Text: No chest pain EKG negative for acute ischemic changes Troponin negative Continue home cardioprotective medication Plan / VTE VTE Prophylaxis Ordered?: Yes BOSSMAN HUNT DO Jul 01, 2020 00:58
[2020-07-01] MEDS ORDERED: GLUCOSE 4GM CHEW TABLET PO PRN (01:00)
[2020-07-01] MEDS ORDERED: DEXTROSE 50% 50 ML SYRINGE IV PRN (01:00)
[2020-07-01] MEDS ORDERED: med rec comment (01:00)
[2020-07-01] MEDS ORDERED: GLUCAGON INJ 1MG VIAL SC PRN (01:00)
[2020-07-01] MEDS ORDERED: ALBUTEROL 90 MCG/ACT 8GM HFA INHALER INH PRN (01:00)
[2020-07-01 01:05] LABS: METHADONE URINE NEGATIVE (NEGATIVE); OPIATES URINE NEGATIVE (NEGATIVE); PHENCYCLIDINE URINE NEGATIVE (NEGATIVE)
[2020-07-01 01:06] LABS: AMPHETAMINES LEVEL URINE NEGATIVE (NEGATIVE); BARBITURATES URINE NEGATIVE (NEGATIVE); BENZODIAZEPINES URINE NEGATIVE (NEGATIVE); CANNABINOIDS URINE NEGATIVE (NEGATIVE); COCAINE METABOLITE URINE NEGATIVE (NEGATIVE)
[2020-07-01] MEDS: DIVALPROEX 250 MG TAB PO SCH ×4 (02:10→20:42)
[2020-07-01 02:30] VITALS: BP 132/59
[2020-07-01] MEDS: LEVOTHYROXINE 75MCG TABLET (0.075MG) PO SCH (05:50)
[2020-07-01 06:00] VITALS: BP 126/57
[2020-07-01] MEDS: HumaLOG INSULIN (NovoLOG) PER UNIT SC SCH ×3 (07:30→18:02)
[2020-07-01] MEDS: ADVAIR HFA 115/21MCG INHALER INH SCH ×2 (07:49→19:41)
--- NOTE | 2020-07-01 08:09 | ECGEPIP ---
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
[2020-07-01] MEDS: OMEPRAZOLE 20 MG CAP PO SCH (08:54)
[2020-07-01] MEDS: METOPROLOL TART 25 MG TABLET PO SCH ×2 (08:55→20:36)
[2020-07-01] MEDS: PARoxetine 20 MG TAB PO SCH (08:57)
[2020-07-01] MEDS ORDERED: DICYCLOMINE 10 MG CAP PO SCH (09:00)
[2020-07-01] MEDS ORDERED: LEVEMIR (INSULIN DETEMIR) 1 UNITS/0.01ML SC SCH ×2 (09:00→21:00)
[2020-07-01] MEDS: HEPARIN SOD (PORCINE) 5000UNITS/ML 1ML VIAL/SYRINGE SC SCH ×2 (09:02→20:31)
[2020-07-01] MEDS: FLUTICASONE PROP 0.05% NASAL SPRAY 16 GM (FLONASE) SCH (09:03)
[2020-07-01] MEDS ORDERED: DICYCLOMINE 10 MG CAP PO PRN (10:00)
--- NOTE | 2020-07-01 10:31 | IPNPDOC ---
Text Note Date of Service The patient was seen on 07/01/20. NOTE Subjective: Does not have any complaints this morning except for left shoulder pain. Patient is awake and alert and oriented. . She reports that she cannot move her left arm. . She does not remember what happened yesterday and when she is in the hospital. Denies any headache, nausea, vomiting, diarrhea. Denies any abdominal pain Physical exam Vitals as below General Exam: Negative: Alert, Cooperative, awake, oriented x 3 Eye Exam: PERRLA HENT Exam: Atraumatic, normocephalic. Moist mucous membranes. Anicteric eyes Neck Exam: Supple, no JVD Chest Exam: Clear to auscultation . No rhonchi, wheezing or crackles Heart Exam: Regular heart sounds, Rate Normal, no rub murmur gallop Telemetry: No significant arrhythmia Abdomen Exam: Soft, nontender ,Normal bowel sounds Extremity Exam: No edema, no clubbing or cyanosis, bruising on left shoulder Skin Exam:Nl turgor and temperature Neuro Exam: Strength at 5/5 X4 ext, Cranial Nerves 3-12 NL, no focal neuro deficits Psych Exam: Mental status NL Labs and radiology reviewed Assessment and plan : Patient is 80 years old female with past history of coronary artery diseases, asthma, allergies, hypothyroidism, fatty liver, IBS, DM, CKD stage 3, RA, OA, JAGRUTI, HLD, Diverticulosis, GERD, Esophageal stricture with h/o multiple dilatations, thrombocytopenia, Cervical spinal stenosis, presented hospital with possible history of seizure. According to her patient developed seizure-like activities in the daytime, he described that patient stare on the wall and was unresponsive verbally. Patient did not remember this episode. Her stated that this period of unresponsiveness continued around 5 minutes. No shakiness of limbs were observed. Patient was brought to ER, Dr. Wills was contacted by phone and he recommended Depakote and dc home. At home patient developed syncope with loss of consciousness, she was unresponsive for a few minutes. Her stated that her eye was wide-open, no urinary or fecal incontinence. She was brought back to ED. She was admitted for Seizure/ confusion. Seizure lactate was elevated on the first presentation the first time with acidosis on blood gas. It looks that she has underlying liver disease also. will monitor on telemetry orthostatic vitals CT head negative for any acute events. started on depakote. EEG Acute metabolic encephalopathy ? hepatic encephalopathy CT abd from 2019 shows cirrhotic liver , has chronic thrombocytopenia, now with elevated ammonia has h/o fatty lever. will start on lactulose Hypomagnesemia replaced. Asthma inhalors as ordered CAD w LAD and LCx dz / s/p CABG No issues at present. Anxiety/Depression paroxetine Hypothyroidism synthroid Diabetes with neuropathy continue levemir and lispro. Chronic Anemia will check iron profile, vit b12, folate IBS/ diarrhea continue dicyclomine. will hold loperamide for now. will aim for 2 to 3 bowel movements a day. Hypertension on metoprolol Chronic back pain/ neck pain/shoulder pain Osteoporosis/ OA/RA/ cervical spinal stenosis tylenol prn. will get xray of left shoulder as it has bruises. GERD/Esophageal strictures/ dilatations Omeprazole. JAGRUTI/CPAP VS,Fishbone, I+O VS, Fishbone, I+O Laboratory Tests 06/30/20 21:19 06/30/20 23:01 Vital Signs Date Time Temp Pulse Resp B/P (MAP) Pulse Ox O2 Delivery O2 Flow Rate FiO2 07/01/20 08:55 74 117/57 07/01/20 06:00 98.2 16 97 Room Air I&O- Last 24 Hours up to 6 AM 07/01/20 06:00 Intake Total 800 ml Output Total 0 ml Balance 800 ml HAKAN TONY MD Jul 01, 2020 10:31
--- NOTE | 2020-07-01 10:43 | REP ---
INDICATION: fall and bruising COMPARISON: None. TECHNIQUE: Internal rotation, external rotation, and Y view. FINDINGS: No acute fracture or dislocation. The acromioclavicular and glenohumeral joints are intact and demonstrate age-related changes. No periarticular calcifications or significant overt osteoarthritic degenerative changes are appreciated. Sub acromial space is normal. Surrounding soft tissues are unremarkable. IMPRESSION: Normal age-appropriate shoulder radiographs. No acute fracture or dislocation. <Electronically signed by Damon Gao > 07/01/20 [id number]
[2020-07-01] MEDS: LACTULOSE 20 GM/30 ML SYRUP UD PO SCH ×4 (10:50→20:38)
[2020-07-01] MEDS: BISACODYL 10 MG SUPP PR ONE ×2 (10:50→11:30)
[2020-07-01 14:00] VITALS: BP 118/55
[2020-07-01 16:00] VITALS: BP_SYST 120; BP_SYST 122; BP_SYST 124; BP_DIAS 60
[2020-07-01] MEDS: ROSUVASTATIN 10 MG TAB (CRESTOR) PO SCH ×2 (20:36→20:42)
[2020-07-01 21:00] VITALS: BP_SYST 146; BP_SYST 148; BP_DIAS 60; BP_DIAS 62
[2020-07-01] MEDS ORDERED: HumaLOG INSULIN (NovoLOG) PER UNIT SC SCH (21:00)
[2020-07-01 22:00] VITALS: BP 140/55
[2020-07-02] MEDS: LEVOTHYROXINE 75MCG TABLET (0.075MG) PO SCH ×2 (05:54→06:11)
[2020-07-02 06:00] VITALS: BP 158/67
[2020-07-02 06:47] LABS: ALBUMIN 2.7 GM/DL (3.2-5.2); BILIRUBIN,TOTAL 0.5 MG/DL (0.2-1.0); CREATININE FOR GFR 1.06 MG/DL (0.55-1.30); GLOMERULAR FILTRATION RATE 53.1 (>32); MAGNESIUM LEVEL 1.4 MG/DL (1.8-2.4); POTASSIUM SERUM 3.8 MEQ/L (3.5-5.1); TOTAL PROTEIN 5.9 GM/DL (6.4-8.2)
[2020-07-02 06:52] LABS: HEMATOCRIT 29.8 % (36.0-47.0); HEMOGLOBIN 9.5 g/dl (12.0-15.5); MEAN CORPUSCULAR HEMOGLOBIN 30.5 pg (27.0-33.0); MEAN CORPUSCULAR HGB CONC 31.9 g/dl (32.0-36.5); MEAN CORPUSCULAR VOLUME 95.8 fl (80.0-96.0); RED BLOOD COUNT 3.11 10^6/uL (4.00-5.40); WHITE BLOOD COUNT 3.5 10^3/uL (4.0-10.0)
[2020-07-02] MEDS: ADVAIR HFA 115/21MCG INHALER INH SCH (07:16)
[2020-07-02 07:30] LABS: PLATELET COUNT, AUTOMATED 89 10^3/uL (150-450)
[2020-07-02] MEDS ORDERED: MAG SULF 1GM/100ML (MAG RUN) 1 GM in IV 1 EA IV ONE (09:00)
[2020-07-02] MEDS: FLUTICASONE PROP 0.05% NASAL SPRAY 16 GM (FLONASE) SCH (09:18)
[2020-07-02] MEDS: OMEPRAZOLE 20 MG CAP PO SCH (09:20)
[2020-07-02] MEDS: LACTULOSE 20 GM/30 ML SYRUP UD PO SCH (09:21)
[2020-07-02] MEDS: DIVALPROEX 250 MG TAB PO SCH (09:21)
[2020-07-02] MEDS: HEPARIN SOD (PORCINE) 5000UNITS/ML 1ML VIAL/SYRINGE SC SCH (09:21)
[2020-07-02] MEDS: PARoxetine 20 MG TAB PO SCH (09:21)
[2020-07-02 09:22] VITALS: BP 137/62
[2020-07-02] MEDS: METOPROLOL TART 25 MG TABLET PO SCH (09:22)
[2020-07-02] MEDS: HumaLOG INSULIN (NovoLOG) PER UNIT SC SCH (09:23)
[2020-07-02] MEDS ORDERED: DEPA250T32 PO (09:48)
[2020-07-02] MEDS ORDERED: LACT20EL PO (09:48)
--- NOTE | 2020-07-03 10:59 | DS.PDOC ---
Discharge Summary General Date of Admission Jul 01, 2020 at 00:38 Date of Discharge 07/02/20 Discharge Summary PROCEDURES PERFORMED DURING STAY: [None]. DISCHARGE DIAGNOSES: Seizure Acute metabolic encephalopathy/Hepatic Encephalopathy Cirrhosis of Liver with thrombocytopenia Hypomagnesemia SECONDARY DIAGNOSIS: Fatty Liver Asthma CAD w LAD and LCx dz / s/p CABG Anxiety/Depression Hypothyroidism Chronic Anemia IBS/ Chronic diarrhea DM with neuropathy Hypertension GERD Esophageal strictures with multiple dilatations JAGRUTI Chronic back pain/ neck pain/shoulder pain Osteoporosis/ OA/RA/ cervical spinal stenosis COMPLICATIONS/CHIEF COMPLAINT: Seizure. HOSPITAL COURSE: Patient is 80 years old female with past history of coronary artery diseases, asthma, allergies, hypothyroidism, fatty liver, IBS, DM, CKD stage 3, RA, OA, JAGRUTI, HLD, Diverticulosis, GERD, Esophageal stricture with h/o multiple dilatations, thrombocytopenia, Cervical spinal stenosis, presented hospital with possible history of seizure. According to her patient developed seizure-like activities in the daytime, he described that patient stare on the wall and was unresponsive verbally. Patient did not remember this episode. Her stated that this period of unresponsiveness continued around 5 minutes. No shakiness of limbs were observed. Patient was brought to ER, Dr. Wills was contacted by phone and he recommended Depakote and dc home. At home patient developed syncope with loss of consciousness, she was unresponsive for a few minutes. Her stated that her eye was wide-open, no urinary or fecal incontinence. She was brought back to ED. She was admitted for Seizure/ confusion. Seizure lactate was elevated on the first presentation the first time with acidosis on blood gas. It looks that she has underlying liver disease also. prolactin was elevated. No arrhthmias on telemetry. orthostatic vitals negative CT head negative for any acute events. started on depakote. will need referral to Neurology as outpatient. Acute metabolic encephalopathy ? hepatic encephalopathy CT abd from 2019 shows cirrhotic liver , has chronic thrombocytopenia, now with elevated ammonia has h/o fatty lever. will start on lactulose Hypomagnesemia replaced. Asthma inhalors as ordered CAD w LAD and LCx dz / s/p CABG No issues at present. Anxiety/Depression paroxetine Hypothyroidism synthroid Diabetes with neuropathy continue levemir and lispro. Chronic Anemia follow up PMD IBS/ diarrhea continue dicyclomine. will hold loperamide for now. will aim for 2 to 3 bowel movements a day. Hypertension on metoprolol Chronic back pain/ neck pain/shoulder pain Osteoporosis/ OA/RA/ cervical spinal stenosis tylenol prn. will get xray of left shoulder as it has bruises. GERD/Esophageal strictures/ dilatations Omeprazole. JAGRUTI/CPAP DISCHARGE MEDICATIONS: Please see below. ALLERGIES: Please see below. PHYSICAL EXAMINATION ON DISCHARGE: VITAL SIGNS: Please see below. General Exam: Negative: Alert, Cooperative, awake, oriented x 3 Eye Exam: PERRLA HENT Exam: Atraumatic, normocephalic. Moist mucous membranes. Anicteric eyes Neck Exam: Supple, no JVD Chest Exam: Clear to auscultation . No rhonchi, wheezing or crackles Heart Exam: Regular heart sounds, Rate Normal, no rub murmur gallop Telemetry: No significant arrhythmia Abdomen Exam: Soft, nontender ,Normal bowel sounds Extremity Exam: No edema, no clubbing or cyanosis, bruising on left shoulder Skin Exam:Nl turgor and temperature Neuro Exam: Strength at 5/5 X4 ext, Cranial Nerves 3-12 NL, no focal neuro deficits Psych Exam: Mental status NL LABORATORY DATA: Please see below. ACTIVITY: [As tolerated]. DIET: Carb consistent DISPOSITION: 01 Home, Self-Care. DISCHARGE INSTRUCTIONS: PMD in 1 week Needs referral to Neurology DISCHARGE CONDITION: [Stable]. TIME SPENT ON DISCHARGE: 35 minutes. Vital Signs/I&Os Vital Signs Date Time Temp Pulse Resp B/P (MAP) Pulse Ox O2 Delivery O2 Flow Rate FiO2 07/02/20 09:22 87 137/62 07/02/20 06:00 98.2 18 95 Room Air I&O- Last 24 Hours up to 6 AM 07/03/20 06:00 Intake Total 300 ml Balance 300 ml Discharge Medications Scheduled Dicyclomine HCl (Dicyclomine HCl) 10 Mg Capsule, 10 MG PO QID, (Reported) Divalproex Sodium (Depakote) 250 Mg Tablet.dr, 250 MG PO BID Fluticasone Propion/Salmeterol (Advair Hfa 115-21 Mcg Inhaler) 1 Aer Aer, 2 PUFF INH BID, (Reported) Fluticasone Propionate (Flonase Allergy Relief) 50 Mcg/Act Spr, 1 SPRAY NA DAILY, (Reported) Insulin Aspart (Novolog Flexpen) 100 Unit/Ml Inj, 1 DOSE SC QID, (Reported) SLIDING SCALE WITH MEALS AND HS Insulin Glargine,Hum.rec.anlog (Basaglar Kwikpen U-100) 100 Unit/1 Ml Insuln.pen, 50 UNIT SC QHS, (Reported) Levothyroxine Sodium (Levothyroxine Sodium) 75 Mcg Tab, 75 MCG PO QAM, (Reported) Metoprolol Tartrate (Metoprolol Tartrate) 25 Mg Tablet, 25 MG PO BID, (Reported) Omeprazole (Omeprazole) 20 Mg Cap, 20 MG PO DAILY, (Reported) Paroxetine HCl (Paroxetine HCl) 40 Mg Tablet, 60 MG PO DAILY, (Reported) Rosuvastatin Calcium (Rosuvastatin Calcium) 10 Mg Tablet, 10 MG PO QHS, (Reported) Scheduled PRN Acetaminophen (Acetaminophen) 500 Mg Tab, 500 MG PO Q6H PRN for PAIN, (Reported) Albuterol Sulfate (Ventolin Hfa) 18 Gm Hfa.aer.ad, 2 PUFF INH Q4H PRN for SHORTNESS OF BREATH, (Reported) Lactulose (Lactulose) 10 Gm/15 Ml Solution, 15 ML PO BIDP PRN for CONSTIPATION Loperamide HCl (Imodium A-D) 2 Mg Capsule, 2 MG PO BID PRN for DIARRHEA, (Reported) Miscellaneous Medications [med rec comment] , (Reported) patient and spouse unable to verify last dose and med list, used external history Allergies Coded Allergies: Penicillins (Verified Adverse Reaction, Unknown, nasuea and vomiting, 06/30/20) HAKAN TONY MD Jul 03, 2020 10:59
[2020-07-03 11:42] LABS: PROLACTIN 55.1 NG/ML
== END 2020-07-02 11:28 | disposition home or self-care (01) ==
LOC: EDBD 19:51 → M ED 19:51 → M ED INP 07-01 00:38 → ENRESERV 07-01 01:22 → M MSPAV 07-01 02:27
PROVIDERS: ADMIT Internal Medicine; ATTEND Internal Medicine Nephrology
DX: G40.89 Other seizures (principal); R55 Syncope and collapse; G93.41 Metabolic encephalopathy; K72.91 Hepatic failure, unspecified with coma; K74.60 Unspecified cirrhosis of liver; D69.6 Thrombocytopenia, unspecified; E83.42 Hypomagnesemia; K76.0 Fatty (change of) liver, not elsewhere classified; J45.909 Unspecified asthma, uncomplicated; N18.30 Chronic kidney disease, stage 3 unspecified; I12.9 Hypertensive chronic kidney disease with stage 1 through stage 4 chronic kidney disease, or unspecified chronic kidney disease; E03.9 Hypothyroidism, unspecified; E11.40 Type 2 diabetes mellitus with diabetic neuropathy, unspecified; F32.9 Major depressive disorder, single episode, unspecified; F41.9 Anxiety disorder, unspecified; K22.2 Esophageal obstruction; G47.33 Obstructive sleep apnea (adult) (pediatric); M81.0 Age-related osteoporosis without current pathological fracture; K58.8 Other irritable bowel syndrome; Z88.0 Allergy status to penicillin; Z79.4 Long term (current) use of insulin; Z79.899 Other long term (current) drug therapy; Z91.81 History of falling
CPT/HCPCS: 36415; 70450; 72125; 73030; 80048; 80053; 80076; 80307; 82140; 82550; 82553; 83605; 83735; 83930; 84146; 84443; 84484; 85025; 85027; 85049; 85055; 93005; 93041; 94640; 94760; 96361; 96372; 96374; 97116; 97161; 97530; 99285; G0378; G0480; J1644; J2765; J3475

== ENCOUNTER → 2020-06-30 | Outpatient (CLI) | payer MEDICARE | LOC: M WHC 10:50 | PROVIDERS: ATTEND Advanced Practice Midwife | DX: Z12.31 Encounter for screening mammogram for malignant neoplasm of breast (principal) ==

== ENCOUNTER → 2020-07-07 | Outpatient (CLI) | payer MEDICARE ==
[~2020-07-07] MED LIST changes: +BASA100I SC; +DEPA250T32 PO; +DICY10CA13 PO; +LACT20EL PO; +LOPE-39 PO; +METO1TAB87 PO; +PARO40TA2 PO; +ROSU10TA6 PO; +VENTAER INH; +med rec comment
--- NOTE | 2020-07-07 11:49 | REP ---
INDICATION: PAIN COMPARISON: None. TECHNIQUE: AP, lateral, bilateral oblique views left foot. FINDINGS: The osseous structures and joint spaces are intact and there is no evidence for acute fracture or dislocation. Lateral view demonstrates calcaneal heel spur. Surrounding soft tissues suggest mild swelling. No subcutaneous emphysema or foreign body. IMPRESSION: Mild swelling primarily at the ankle and hindfoot. No acute fracture or dislocation. <Electronically signed by Damon Gao > 07/07/20 [id number]
[2020-07-07 13:29] LABS: BASO % 0.6 % (0.0-1.0); EOS # 0.1 10^3/uL (0.0-0.5); HEMATOCRIT 35.3 % (36.0-47.0); HEMOGLOBIN 10.6 g/dl (12.0-15.5); LYMPH # 1.2 10^3/uL (1.5-5.0); LYMPH % 17.9 % (24.0-44.0); MEAN CORPUSCULAR HEMOGLOBIN 29.5 pg (27.0-33.0); MEAN CORPUSCULAR VOLUME 98.3 fl (80.0-96.0); MONO # 0.6 10^3/uL (0.0-0.8); MONO % 8.9 % (0.0-5.0); NEUTROPHILS # 4.5 10^3/uL (1.5-8.5); PLATELET COUNT, AUTOMATED 168 10^3/uL (150-450); RED BLOOD COUNT 3.59 10^6/uL (4.00-5.40); WHITE BLOOD COUNT 6.4 10^3/uL (4.0-10.0)
[2020-07-07 14:03] LABS: ALBUMIN 2.8 GM/DL (3.2-5.2); ALT/SGPT 16 U/L (12-78); BILIRUBIN,TOTAL 0.8 MG/DL (0.2-1.0); BLOOD UREA NITROGEN 19 MG/DL (7-18); CARBON DIOXIDE LEVEL 29 MEQ/L (21-32); CHLORIDE LEVEL 104 MEQ/L (98-107); CREATININE FOR GFR 0.88 MG/DL (0.55-1.30); GLOMERULAR FILTRATION RATE > 60.0 (>32); GLUCOSE, FASTING 126 MG/DL (70-100); MAGNESIUM LEVEL 1.4 MG/DL (1.8-2.4); SODIUM LEVEL 141 MEQ/L (136-145); TOTAL PROTEIN 6.6 GM/DL (6.4-8.2)
== END ==
LOC: M WUC 11:06
PROVIDERS: ATTEND Nurse Practitioner Family
DX: M77.32 Calcaneal spur, left foot (principal); M79.672 Pain in left foot; Z09 Encounter for follow-up examination after completed treatment for conditions other than malignant neoplasm
CPT/HCPCS: 36415; 73630; 80053; 82140; 83735; 85025; G0463

== ENCOUNTER → 2020-07-26 | Outpatient (CLI) | payer MEDICARE ==
[2020-07-26 12:17] LABS: CALCIUM LEVEL 9.7 MG/DL (8.8-10.2); CREATININE FOR GFR 1.53 MG/DL (0.55-1.30); GLOMERULAR FILTRATION RATE 34.8 (>32); POTASSIUM SERUM 4.1 MEQ/L (3.5-5.1); URIC ACID 12.6 MG/DL (2.6-6.0)
--- NOTE | 2020-07-27 03:34 | REP ---
INDICATION: PAIN IN FOOT COMPARISON: None. TECHNIQUE: AP, lateral, bilateral oblique views right foot. FINDINGS: Age-related osteopenia and generalized degenerative changes are appreciated which somewhat limits evaluation. No obvious acute fracture or dislocation identified. No subcutaneous emphysema or foreign body. Small calcaneal heel spur noted. IMPRESSION: Age-related osteopenia and generalized arthritic changes. No acute fracture or dislocation. <Electronically signed by Damon Gao > 07/27/20 [id number]
== END ==
LOC: M WUC 09:41
PROVIDERS: ATTEND Family Medicine
DX: M85.871 Other specified disorders of bone density and structure, right ankle and foot (principal); M85.872 Other specified disorders of bone density and structure, left ankle and foot; M19.071 Primary osteoarthritis, right ankle and foot; M19.072 Primary osteoarthritis, left ankle and foot; M79.671 Pain in right foot; E87.6 Hypokalemia; Z23 Encounter for immunization
CPT/HCPCS: 36415; 73630; 80048; 84550; 90682; G0008; G0463

== ENCOUNTER → 2020-08-04 | Outpatient (CLI) | payer MEDICARE ==
[2020-08-04 13:22] LABS: CALCIUM LEVEL 9.1 MG/DL (8.8-10.2); CREATININE FOR GFR 1.4 MG/DL (0.55-1.30); GLOMERULAR FILTRATION RATE 38.5 (>32); URIC ACID 9.9 MG/DL (2.6-6.0)
[2020-08-04 13:38] LABS: APPEARANCE, URINE CLOUDY (CLEAR); BACTERIA, URINE AUTO 3+ (NEGATIVE); BILIRUBIN, URINE AUTO NEGATIVE (NEGATIVE); BLOOD, URINE BLOOD 1+ (NEGATIVE); COLOR, URINE YELLOW (YELLOW); GLUCOSE, URINE (UA) AUTO NEGATIVE (NEGATIVE); KETONE, URINE AUTO NEGATIVE (NEGATIVE); LEUKOCYTE ESTERASE, URINE AUTO 3+ (NEGATIVE); NITRITE, URINE AUTO NEGATIVE (NEGATIVE); PROTEIN, URINE AUTO NEGATIVE (NEGATIVE); RBC, URINE AUTO 5 /HPF (0-3); SPECIFIC GRAVITY URINE AUTO 1.015 (1.002-1.035); SQUAMOUS EPITHELIAL CELL UR AU 3 /HPF (0-6); UROBILINOGEN, URINE AUTO 0.2 mg/dL (0.0-2.0); WBC, URINE AUTO 47 /HPF (0-3)
== END ==
LOC: M WUC 09:50
PROVIDERS: ATTEND Family Medicine
DX: R79.89 Other specified abnormal findings of blood chemistry (principal)

== ENCOUNTER 2020-08-31 03:02 | Emergency (ER) | payer MEDICARE ==
[~2020-08-31] VITALS: Ht 167.6 cm; Wt 79.1 kg
[2020-08-31] MEDS ORDERED: ONDANSETRON 4MG/2ML VIAL IV ONE (03:15)
[2020-08-31] MEDS ORDERED: NS 1,000 ML IV ONE (03:15)
[2020-08-31 03:29] LABS: BASO % 0.2 % (0.0-1.0); EOS # 0.1 10^3/uL (0.0-0.5); EOS % 1.3 % (0.0-3.0); HEMATOCRIT 40.3 % (36.0-47.0); HEMOGLOBIN 12.2 g/dl (12.0-15.5); LYMPH # 0.7 10^3/uL (1.5-5.0); MEAN CORPUSCULAR HEMOGLOBIN 28.2 pg (27.0-33.0); MEAN CORPUSCULAR HGB CONC 30.3 g/dl (32.0-36.5); MEAN CORPUSCULAR VOLUME 93.1 fl (80.0-96.0); MONO # 0.1 10^3/uL (0.0-0.8); MONO % 2.4 % (0.0-5.0); NEUTROPHILS # 3.7 10^3/uL (1.5-8.5); NEUTROPHILS % 80.9 % (36.0-66.0); PLATELET COUNT, AUTOMATED 144 10^3/uL (150-450); RED BLOOD COUNT 4.33 10^6/uL (4.00-5.40); WHITE BLOOD COUNT 4.5 10^3/uL (4.0-10.0)
[2020-08-31 03:42] LABS: INR 1.17; PROTHROMBIN TIME 15.2 SECONDS (12.5-14.3)
[2020-08-31 03:57] LABS: ALBUMIN 3.2 GM/DL (3.2-5.2); BILIRUBIN,DIRECT 0.2 MG/DL (0.0-0.2); BILIRUBIN,TOTAL 0.5 MG/DL (0.2-1.0); CALCIUM LEVEL 8.3 MG/DL (8.8-10.2); CREATININE FOR GFR 1.31 MG/DL (0.55-1.30); ETHYL ALCOHOL (ETHANOL) 0.004 % (0.000-0.010); GLOMERULAR FILTRATION RATE 41.6 (>32); POTASSIUM SERUM 3.9 MEQ/L (3.5-5.1)
[2020-08-31 04:00] VITALS: BP 130/56
[2020-08-31] MEDS ORDERED: LOPERAMIDE 2 MG CAPLET PO ONE (04:30)
[2020-08-31] MEDS ORDERED: ONDANSETRON 4 MG ORAL DISINTEGRATING TAB PO ONE (04:30)
--- NOTE | 2020-08-31 13:39 | ECGEPIP ---
[facility] - ED Test Date: 2020-08-31 Pat Name: LILLIE BERNARD Department: Room: - Gender: Female Program Paraprofessional: bernie : [id number] Requested By: STANLEY GARY Order Number: [id number] Reading MD: Sam Ordoñez Measurements Intervals [place] Rate: 69 P: 65 CT: 160 QRS: 145 QRSD: 101 T: 4 QT: 439 QTc: 473 Interpretive Statements SINUS RHYTHM RIGHT AXIS DEVIATION POOR R WAVE PROGRESSION SIMILAR TO 06/30/20 Electronically Signed on 08-31-2020 13:39:21 EST by Sam Ordoñez
== END 2020-08-31 04:57 | disposition home or self-care (01) ==
LOC: M ED 03:02
DX: A08.4 Viral intestinal infection, unspecified (principal); Z79.899 Other long term (current) drug therapy; Z79.4 Long term (current) use of insulin; Z88.0 Allergy status to penicillin
CPT/HCPCS: 80053; 82150; 82248; 83605; 83690; 85025; 85610; 87507; 93005; 93041; 96361; 96374; 99284; G0480; J2405; Q0162

== ENCOUNTER → 2020-12-13 | Outpatient (CLI) | payer MEDICARE ==
--- NOTE | 2020-12-13 08:19 | REP ---
INDICATION: CIRRHOSIS COMPARISON: 07/27/2019, 11/22/2019 TECHNIQUE: Real time B-mode gomez scale ultrasound examination using curved array transducer. FINDINGS: Liver is heterogeneous and demonstrates coarsened echotexture consistent with cirrhosis. No focal hepatic lesion identified and no evidence for hepatomegaly. Visualized portions of the pancreas are normal. The spleen is enlarged and measures 12.9 x 12.9 x 6.0 cm (splenic index 998). No focal splenic lesion identified. Patient is status post cholecystectomy with compensatory dilatation to the common bile duct at 12 mm diameter. The bilateral kidneys are normal in reniform shape without hydronephrosis. Right kidney measures 9.5 x 4.4 x 3.7 cm. Left kidney measures 10.2 x 4.4 x 4.7 cm. Age-related renal changes include increased central sinus fat and cortical thinning. Abdominal aorta measures 1.7 cm maximal diameter. No ascites noted. IMPRESSION: 1. Hepatic findings consistent with cirrhosis. 2. Splenomegaly possibly related to early portal hypertension. <Electronically signed by Damon Gao > 12/13/20 [id number]
== END ==
LOC: M RAD 07:01
PROVIDERS: ATTEND Hospitalist
DX: K74.60 Unspecified cirrhosis of liver (principal); K21.9 Gastro-esophageal reflux disease without esophagitis; K58.0 Irritable bowel syndrome with diarrhea; R16.1 Splenomegaly, not elsewhere classified

== ENCOUNTER → 2021-01-10 | Outpatient (REF) | payer MEDICARE ==
[2021-01-10 11:01] LABS: BASO # 0.1 10^3/uL (0.0-0.2); BASO % 1.4 % (0.0-1.0); EOS # 0.3 10^3/uL (0.0-0.5); EOS % 6.1 % (0.0-3.0); HEMATOCRIT 35.4 % (36.0-47.0); HEMOGLOBIN 10.9 g/dl (12.0-15.5); LYMPH # 1.8 10^3/uL (1.5-5.0); LYMPH % 36.5 % (24.0-44.0); MEAN CORPUSCULAR HEMOGLOBIN 28.8 pg (27.0-33.0); MEAN CORPUSCULAR HGB CONC 30.8 g/dl (32.0-36.5); MEAN CORPUSCULAR VOLUME 93.4 fl (80.0-96.0); MONO # 0.3 10^3/uL (0.0-0.8); NEUTROPHILS # 2.4 10^3/uL (1.5-8.5); NEUTROPHILS % 48.8 % (36.0-66.0); PLATELET COUNT, AUTOMATED 116 10^3/uL (150-450); RED BLOOD COUNT 3.79 10^6/uL (4.00-5.40); WHITE BLOOD COUNT 4.9 10^3/uL (4.0-10.0)
[2021-01-10 11:32] LABS: ALBUMIN 3.3 GM/DL (3.2-5.2); BILIRUBIN,TOTAL 0.5 MG/DL (0.2-1.0); CHOLESTEROL RISK RATIO 2.727 (<5); CREATININE FOR GFR 1.24 MG/DL (0.55-1.30); FREE T4 1.08 NG/DL (0.76-1.46); GLOMERULAR FILTRATION RATE 44.3 (>32); HEMOGLOBIN A1c 7.8 %; THYROID STIMULATING HORMONE 0.595 uIU/ML (0.358-3.740); TOTAL PROTEIN 6.7 GM/DL (6.4-8.2)
[2021-01-12 15:08] LABS: AFP TUMOR TOTAL 3.8 ng/mL (0.0-8.0)
== END ==
LOC: M SFHCPLAZ 09:11
PROVIDERS: ATTEND Nurse Practitioner Family
DX: K74.60 Unspecified cirrhosis of liver (principal); D64.9 Anemia, unspecified; E11.8 Type 2 diabetes mellitus with unspecified complications; E03.9 Hypothyroidism, unspecified; E78.2 Mixed hyperlipidemia

== ENCOUNTER → 2021-02-02 | Outpatient (REF) | payer MEDICARE ==
[2021-02-02 16:01] LABS: FOLATE 7.9 NG/ML (>5.4)
== END ==
LOC: M SFHCPLAZ 12:20
PROVIDERS: ATTEND Nurse Practitioner Family
DX: R26.81 Unsteadiness on feet (principal)

== ENCOUNTER → 2021-04-03 | Outpatient (CLI) | payer MEDICARE ==
[2021-04-03 17:05] LABS: ALBUMIN 3.2 GM/DL (3.2-5.2); BILIRUBIN,TOTAL 0.6 MG/DL (0.2-1.0); CALCIUM LEVEL 8.5 MG/DL (8.8-10.2); CHOLESTEROL RISK RATIO 2.745 (<5); CREATININE FOR GFR 1.54 MG/DL (0.55-1.30); FREE T4 1.16 NG/DL (0.76-1.46); GLOMERULAR FILTRATION RATE 34.5 (>32); THYROID STIMULATING HORMONE 0.328 uIU/ML (0.358-3.740); TOTAL PROTEIN 6.7 GM/DL (6.4-8.2)
[2021-04-03 17:20] LABS: TOTAL 25(OH) VITAMIN D 21.7 NG/ML (30.0-100.0)
[2021-04-03 17:29] LABS: HEMOGLOBIN A1c 7.9 %
== END ==
LOC: M PLALAB 13:28
PROVIDERS: ATTEND Nurse Practitioner Family
DX: E55.9 Vitamin D deficiency, unspecified (principal); E11.65 Type 2 diabetes mellitus with hyperglycemia; Z79.4 Long term (current) use of insulin

== ENCOUNTER → 2021-04-06 | Outpatient (REF) | payer MEDICARE ==
[2021-04-06 16:29] LABS: MALB URINE SIEMENS 45.7 MG/L; MAU/CREAT RATIO 31.9 MCG/MG (0.0-30.0)
== END ==
LOC: M LAB REF 15:02
PROVIDERS: ATTEND Nurse Practitioner Family
DX: E11.65 Type 2 diabetes mellitus with hyperglycemia (principal); Z79.4 Long term (current) use of insulin

== ENCOUNTER → 2021-05-10 | Outpatient (CLI) | payer MEDICARE ==
--- NOTE | 2021-05-10 09:12 | REP ---
INDICATION: HEPITIC CIRRHOSIS OF LIVER ? ASCITES COMPARISON: 12/13/2020, 11/22/2019 TECHNIQUE: Real time gomez scale ultrasound examination using curved array transducer. FINDINGS: Liver demonstrates mild coarsened echotexture with very subtle nodular contour consistent with the given history of cirrhosis. No focal hepatic lesion identified. No perihepatic or obvious upper abdominal ascites. Pancreas is incompletely evaluated due to interposed bowel gas. The gallbladder is again noted to be surgically absent with relatively stable compensatory biliary ductal dilatation. The common bile duct measures 13 mm. Right kidney is normal in reniform shape without hydronephrosis and measures 10.3 x 5.5 x 4.0 cm. No ascites in the visualized right upper quadrant. IMPRESSION: 1. Stable appearance of the liver with findings to suggest cirrhosis. 2. No acute abdominal pathology by ultrasound. 3. No ascites noted. <Electronically signed by Damon Gao > 05/10/21 [id number]
== END ==
LOC: M RAD 08:36
PROVIDERS: ATTEND Hospitalist
DX: K74.60 Unspecified cirrhosis of liver (principal)

== ENCOUNTER → 2021-11-05 | Outpatient (CLI) | payer MEDICARE ==
[~2021-11-05] MED LIST changes: -LISI20TA20 PO; +LISI20TA37 PO
[2021-11-05 15:21] LABS: BASO # 0.1 10^3/uL (0.0-0.2); BASO % 1.6 % (0.0-1.0); EOS # 0.4 10^3/uL (0.0-0.5); EOS % 6.2 % (0.0-3.0); HEMATOCRIT 32.7 % (36.0-47.0); HEMOGLOBIN 10.1 g/dl (12.0-15.5); LYMPH # 1.9 10^3/uL (1.5-5.0); LYMPH % 33.2 % (24.0-44.0); MEAN CORPUSCULAR HEMOGLOBIN 28.5 pg (27.0-33.0); MEAN CORPUSCULAR HGB CONC 30.9 g/dl (32.0-36.5); MEAN CORPUSCULAR VOLUME 92.1 fl (80.0-96.0); MONO # 0.4 10^3/uL (0.0-0.8); MONO % 7.1 % (2.0-8.0); NEUTROPHILS % 51.6 % (36.0-66.0); PLATELET COUNT, AUTOMATED 143 10^3/uL (150-450); RED BLOOD COUNT 3.55 10^6/uL (4.00-5.40); WHITE BLOOD COUNT 5.8 10^3/uL (4.0-10.0)
[2021-11-05 15:31] LABS: INR 1.18; PROTHROMBIN TIME 15.4 SECONDS (12.7-14.5)
[2021-11-05 15:49] LABS: ALBUMIN 3.1 GM/DL (3.2-5.2); BILIRUBIN,TOTAL 0.6 MG/DL (0.2-1.0); CALCIUM LEVEL 8.6 MG/DL (8.8-10.2); CREATININE FOR GFR 1.45 MG/DL (0.55-1.30); GLOMERULAR FILTRATION RATE 36.9 (>32); POTASSIUM SERUM 4.5 MEQ/L (3.5-5.1); TOTAL PROTEIN 6.3 GM/DL (6.4-8.2)
== END ==
LOC: M PLALAB 10:17
PROVIDERS: ATTEND Hospitalist
DX: K74.60 Unspecified cirrhosis of liver (principal)

== ENCOUNTER → 2021-11-05 | Outpatient (CLI) | payer MEDICARE ==
[2021-11-05 15:30] LABS: BASO # 0.1 10^3/uL (0.0-0.2); BASO % 1.5 % (0.0-1.0); EOS # 0.4 10^3/uL (0.0-0.5); EOS % 6.6 % (0.0-3.0); HEMATOCRIT 32.6 % (36.0-47.0); LYMPH % 33.6 % (24.0-44.0); MEAN CORPUSCULAR HEMOGLOBIN 28.2 pg (27.0-33.0); MEAN CORPUSCULAR HGB CONC 30.7 g/dl (32.0-36.5); MEAN CORPUSCULAR VOLUME 91.8 fl (80.0-96.0); MONO # 0.4 10^3/uL (0.0-0.8); MONO % 6.9 % (2.0-8.0); NEUTROPHILS % 51.2 % (36.0-66.0); PLATELET COUNT, AUTOMATED 147 10^3/uL (150-450); RED BLOOD COUNT 3.55 10^6/uL (4.00-5.40); WHITE BLOOD COUNT 5.9 10^3/uL (4.0-10.0)
[2021-11-05 15:39] LABS: HEMOGLOBIN A1c 8.6 %
[2021-11-05 15:59] LABS: BILIRUBIN,TOTAL 0.6 MG/DL (0.2-1.0); CALCIUM LEVEL 8.4 MG/DL (8.8-10.2); CHOLESTEROL RISK RATIO 3.062 (<5); CREATININE FOR GFR 1.45 MG/DL (0.55-1.30); FREE T4 1.2 NG/DL (0.76-1.46); GLOMERULAR FILTRATION RATE 36.9 (>32); POTASSIUM SERUM 4.4 MEQ/L (3.5-5.1); THYROID STIMULATING HORMONE 1.05 uIU/ML (0.358-3.740); TOTAL 25(OH) VITAMIN D 18.7 NG/ML (30.0-100.0); TOTAL PROTEIN 6.3 GM/DL (6.4-8.2)
== END ==
LOC: M PLALAB 10:14
PROVIDERS: ATTEND Nurse Practitioner Family
DX: E11.8 Type 2 diabetes mellitus with unspecified complications (principal); K74.60 Unspecified cirrhosis of liver

== ENCOUNTER → 2021-11-22 | Outpatient (CLI) | payer MEDICARE | LOC: M RAD 10:35 | PROVIDERS: ATTEND Hospitalist | DX: K74.60 Unspecified cirrhosis of liver (principal) ==

== ENCOUNTER → 2022-02-18 | Outpatient (CLI) | payer MEDICARE ==
[2022-02-18 14:50] LABS: CREATININE FOR GFR 1.44 MG/DL (0.55-1.30); GLOMERULAR FILTRATION RATE 37.2 (>32)
== END ==
LOC: M PLALAB 11:27
PROVIDERS: ATTEND Physician Assistant Surgical
DX: M51.36 Other intervertebral disc degeneration, lumbar region (principal)

== ENCOUNTER → 2022-02-20 | Outpatient (REF) | payer MEDICARE | LOC: M SFHCDERM 09:18 | PROVIDERS: ATTEND Dermatology | DX: C44.42 Squamous cell carcinoma of skin of scalp and neck (principal) ==

== ENCOUNTER → 2022-03-07 | Outpatient (REF) | payer MEDICARE | LOC: M SFHCDERM 17:32 | PROVIDERS: ATTEND Dermatology | DX: D04.4 Carcinoma in situ of skin of scalp and neck (principal); B07.9 Viral wart, unspecified ==

== ENCOUNTER → 2022-05-21 | Outpatient (CLI) | payer MEDICARE ==
[2022-05-21 15:47] LABS: BASO # 0.1 10^3/uL (0.0-0.2); BASO % 1.6 % (0.0-1.0); EOS # 0.3 10^3/uL (0.0-0.5); EOS % 5.6 % (0.0-3.0); HEMATOCRIT 30.5 % (36.0-47.0); HEMOGLOBIN 9.1 g/dl (12.0-15.5); LYMPH # 1.8 10^3/uL (1.5-5.0); LYMPH % 32.2 % (24.0-44.0); MEAN CORPUSCULAR HEMOGLOBIN 27.1 pg (27.0-33.0); MEAN CORPUSCULAR HGB CONC 29.8 g/dl (32.0-36.5); MEAN CORPUSCULAR VOLUME 90.8 fl (80.0-96.0); MONO # 0.4 10^3/uL (0.0-0.8); MONO % 7.1 % (2.0-8.0); NEUTROPHILS # 2.9 10^3/uL (1.5-8.5); NEUTROPHILS % 53.1 % (36.0-66.0); PLATELET COUNT, AUTOMATED 129 10^3/uL (150-450); RED BLOOD COUNT 3.36 10^6/uL (4.00-5.40); WHITE BLOOD COUNT 5.5 10^3/uL (4.0-10.0)
[2022-05-21 16:06] LABS: ALBUMIN 3.2 GM/DL (3.2-5.2); BILIRUBIN,TOTAL 0.4 MG/DL (0.2-1.0); CHOLESTEROL RISK RATIO 2.792 (<5); CREATININE FOR GFR 1.39 MG/DL (0.55-1.30); FREE T4 1.16 NG/DL (0.76-1.46); GLOMERULAR FILTRATION RATE 38.7 (>32); POTASSIUM SERUM 4.4 MEQ/L (3.5-5.1); THYROID STIMULATING HORMONE 0.364 uIU/ML (0.358-3.740); TOTAL PROTEIN 6.5 GM/DL (6.4-8.2)
[2022-05-21 16:52] LABS: FOLATE 10.3 NG/ML (>5.4); PTH INTACT 122.7 PG/ML (18.5-88.0)
== END ==
LOC: M PLALAB 13:06
PROVIDERS: ATTEND Nurse Practitioner Family
DX: E11.8 Type 2 diabetes mellitus with unspecified complications (principal); D64.9 Anemia, unspecified; E03.9 Hypothyroidism, unspecified; E78.2 Mixed hyperlipidemia; E53.8 Deficiency of other specified B group vitamins; Z79.899 Other long term (current) drug therapy

== ENCOUNTER → 2022-07-05 | Outpatient (CLI) | payer MEDICARE | LOC: M PLAIMG 12:33 | PROVIDERS: ATTEND Physician Assistant Surgical | DX: M51.26 Other intervertebral disc displacement, lumbar region (principal); M51.27 Other intervertebral disc displacement, lumbosacral region; M99.63 Osseous and subluxation stenosis of intervertebral foramina of lumbar region ==

== ENCOUNTER → 2022-07-11 | Outpatient (REF) | payer MEDICARE | LOC: M SFHCDERM 17:20 | PROVIDERS: ATTEND Dermatology | DX: C44.629 Squamous cell carcinoma of skin of left upper limb, including shoulder (principal); C44.622 Squamous cell carcinoma of skin of right upper limb, including shoulder ==

== ENCOUNTER → 2022-07-17 | Outpatient (REF) | payer MEDICARE ==
[2022-07-17 18:58] LABS: APPEARANCE, URINE MANUAL CLOUDY (CLEAR); COLOR, URINE MANUAL YELLOW (YELLOW)
[2022-07-17 19:00] LABS: BILIRUBIN, URINE MANUAL NEGATIVE (NEGATIVE); BLOOD URINE MANUAL TRACE (NEGATIVE); GLUCOSE, URINE (UA) MANUAL NEGATIVE (NEGATIVE); KETONE, URINE MANUAL NEGATIVE (NEGATIVE); LEUKOCYTE ESTERASE, URINE MAN POSITIVE (NEGATIVE); NITRITE, URINE MANUAL NEGATIVE (NEGATIVE); PROTEIN, URINE MANUAL NEGATIVE (NEGATIVE); UROBILINOGEN, URINE MANUAL NORMAL (NORMAL)
[2022-07-17 19:48] LABS: BACTERIA, URINE LARGE AMOUNT
[2022-07-17 19:49] LABS: SQUAMOUS EPITHELIAL CELL URINE MOD AMOUNT /hpf (SMALL AMT)
== END ==
LOC: M SFHCPLAZ 17:10
PROVIDERS: ATTEND Nurse Practitioner Family
DX: R41.0 Disorientation, unspecified (principal)

== ENCOUNTER → 2022-09-19 | Outpatient (CLI) | payer MEDICARE ==
[~2022-09-19] MED LIST changes: -PAXI30TA11 PO; +PAXI30TA12 PO
[2022-09-19 15:30] LABS: BASO # 0.1 10^3/uL (0.0-0.2); BASO % 1.5 % (0.0-1.0); EOS # 0.4 10^3/uL (0.0-0.5); EOS % 6.1 % (0.0-3.0); HEMATOCRIT 31.7 % (36.0-47.0); HEMOGLOBIN 9.4 g/dl (12.0-15.5); LYMPH # 1.9 10^3/uL (1.5-5.0); LYMPH % 31.4 % (24.0-44.0); MEAN CORPUSCULAR HEMOGLOBIN 26.3 pg (27.0-33.0); MEAN CORPUSCULAR HGB CONC 29.7 g/dl (32.0-36.5); MEAN CORPUSCULAR VOLUME 88.5 fl (80.0-96.0); MONO # 0.5 10^3/uL (0.0-0.8); NEUTROPHILS # 3.2 10^3/uL (1.5-8.5); PLATELET COUNT, AUTOMATED 142 10^3/uL (150-450); RED BLOOD COUNT 3.58 10^6/uL (4.00-5.40)
[2022-09-19 15:35] LABS: ALBUMIN 3.4 G/DL (3.2-5.2); ALKALINE PHOSPHATASE 94 U/L (46-116); ALT/SGPT < 9 U/L (7.0-40); AST/SGOT 23 U/L (<34); BILIRUBIN,TOTAL 0.6 MG/DL (0.3-1.2); BLOOD UREA NITROGEN 17 MG/DL (9-23); CALCIUM LEVEL 8.7 MG/DL (8.3-10.6); CARBON DIOXIDE LEVEL 28 MMOL/L (20-31); CHLORIDE LEVEL 104 MMOL/L (98-107); CREATININE FOR GFR 1.38 MG/DL (0.55-1.30); GLUCOSE, FASTING 191 MG/DL (74-106); POTASSIUM SERUM 3.8 MMOL/L (3.5-5.1); SODIUM LEVEL 140 MMOL/L (136-145); TOTAL PROTEIN 6.8 G/DL (5.7-8.2)
== END ==
LOC: M PLALAB 12:24
PROVIDERS: ATTEND Nurse Practitioner Family
DX: E11.65 Type 2 diabetes mellitus with hyperglycemia (principal); Z79.4 Long term (current) use of insulin

== ENCOUNTER → 2022-10-07 | Outpatient (REF) | payer MEDICARE ==
[2022-10-08 13:33] LABS: APPEARANCE, URINE MANUAL HAZY (CLEAR); COLOR, URINE MANUAL YELLOW (YELLOW)
[2022-10-08 13:35] LABS: BILIRUBIN, URINE MANUAL NEGATIVE (NEGATIVE); BLOOD URINE MANUAL POSITIVE (NEGATIVE); GLUCOSE, URINE (UA) MANUAL NEGATIVE (NEGATIVE); KETONE, URINE MANUAL NEGATIVE (NEGATIVE); LEUKOCYTE ESTERASE, URINE MAN POSITIVE (NEGATIVE); NITRITE, URINE MANUAL NEGATIVE (NEGATIVE); PROTEIN, URINE MANUAL TRACE mg/dL (NEGATIVE); UROBILINOGEN, URINE MANUAL NORMAL (NORMAL)
[2022-10-08 13:46] LABS: RBC, URINE 0-1 /hpf (0-3); WBC, URINE 15-20 /hpf (0-3)
[2022-10-08 13:47] LABS: BACTERIA, URINE LARGE AMOUNT; HYALINE CAST, URINE NONE SEEN /lpf (0-1); SQUAMOUS EPITHELIAL CELL URINE MOD AMOUNT /hpf (SMALL AMT); TRIPLE PHOSPHATE CRYSTAL,URINE SMALL AMOUNT /hpf
== END ==
LOC: M SFHCPLAZ 12:43
PROVIDERS: ATTEND Physician Assistant Medical
DX: N39.0 Urinary tract infection, site not specified (principal)

== ENCOUNTER → 2022-10-16 | Outpatient (CLI) | payer MEDICARE | LOC: M LAB 09:50 | PROVIDERS: ATTEND Physician Assistant | DX: R39.9 Unspecified symptoms and signs involving the genitourinary system (principal); N18.30 Chronic kidney disease, stage 3 unspecified; E11.8 Type 2 diabetes mellitus with unspecified complications; E55.9 Vitamin D deficiency, unspecified; R41.3 Other amnesia ==

== ENCOUNTER → 2022-10-16 | Outpatient (CLI) | payer MEDICARE ==
[~2022-10-16] MED LIST changes: +ASPI325T57 PO; +CEFD300CAP PO; +CEPH250T PO; +CIPR250T3 PO; +LISI20TA35 PO; +MED REC COMMENT
[2022-10-16 14:47] LABS: APPEARANCE, URINE MANUAL HAZY (CLEAR); BILIRUBIN, URINE MANUAL NEGATIVE (NEGATIVE); BLOOD URINE MANUAL NEGATIVE (NEGATIVE); COLOR, URINE MANUAL YELLOW (YELLOW); GLUCOSE, URINE (UA) MANUAL NEGATIVE (NEGATIVE); KETONE, URINE MANUAL NEGATIVE (NEGATIVE); LEUKOCYTE ESTERASE, URINE MAN POSITIVE (NEGATIVE); NITRITE, URINE MANUAL NEGATIVE (NEGATIVE); PROTEIN, URINE MANUAL TRACE mg/dL (NEGATIVE); SPECIFIC GRAVITY,URINE MANUAL 1.015 (1.002-1.035); UROBILINOGEN, URINE MANUAL NORMAL (NORMAL)
[2022-10-16 15:05] LABS: BASO # 0.1 10^3/uL (0.0-0.2); BASO % 1.9 % (0.0-1.0); EOS # 0.3 10^3/uL (0.0-0.5); HEMATOCRIT 32.2 % (36.0-47.0); HEMOGLOBIN 9.5 g/dl (12.0-15.5); LYMPH # 1.6 10^3/uL (1.5-5.0); LYMPH % 25.9 % (24.0-44.0); MEAN CORPUSCULAR HGB CONC 29.5 g/dl (32.0-36.5); MONO # 0.4 10^3/uL (0.0-0.8); MONO % 6.4 % (2.0-8.0); NEUTROPHILS # 3.8 10^3/uL (1.5-8.5); NEUTROPHILS % 60.5 % (36.0-66.0); PLATELET COUNT, AUTOMATED 140 10^3/uL (150-450); RED BLOOD COUNT 3.66 10^6/uL (4.00-5.40); WHITE BLOOD COUNT 6.3 10^3/uL (4.0-10.0)
[2022-10-16 15:07] LABS: FERRITIN 8.1 NG/ML (7.3-270.7)
[2022-10-16 15:08] LABS: ALBUMIN 3.5 G/DL (3.2-5.2); BILIRUBIN,TOTAL 0.6 MG/DL (0.3-1.2); CALCIUM LEVEL 8.8 MG/DL (8.3-10.6); CREATININE FOR GFR 1.13 MG/DL (0.55-1.30); GLOMERULAR FILTRATION RATE 49.1 (>32); PERCENT SATURATION 10.7 % (13.2-45.0); POTASSIUM SERUM 4.2 MMOL/L (3.5-5.1); TOTAL PROTEIN 6.5 G/DL (5.7-8.2)
[2022-10-16 15:09] LABS: TOTAL 25(OH) VITAMIN D 23.4 NG/ML (20.0-100.0)
[2022-10-16 15:11] LABS: BACTERIA, URINE SMALL AMOUNT; HYALINE CAST, URINE NONE SEEN /lpf (0-1); RBC, URINE 0-1 /hpf (0-3); SQUAMOUS EPITHELIAL CELL URINE MOD AMOUNT /hpf (SMALL AMT)
== END ==
LOC: M PLALAB 09:17
PROVIDERS: ATTEND Physician Assistant
DX: R39.9 Unspecified symptoms and signs involving the genitourinary system (principal); N18.30 Chronic kidney disease, stage 3 unspecified; E11.8 Type 2 diabetes mellitus with unspecified complications; E55.9 Vitamin D deficiency, unspecified; R41.3 Other amnesia

== ENCOUNTER 2022-10-24 13:30 | Outpatient (CLI) | payer MEDICARE ==
[~2022-10-24] VITALS: Ht 167.6 cm; Wt 77.0 kg
[~2022-10-24 13:30] MED LIST changes: +ALBUTEROL SULFATE 2.5MG/0.5ML INH NEB SOLN INH PRN; -ASPI325T57 PO; -CEFD300CAP PO; -CEPH250T PO; -CIPR250T3 PO; +EPINEPHrine INJ 1 MG/ML 1ML AMP IM PRN; -LISI20TA35 PO; -MED REC COMMENT; +diphenhydrAMINE 50MG/ML VIAL IV PRN; +methylPREDNISolone 125MG 2ML VIAL IV PRN
[2022-10-24 13:35] VITALS: BP 164/89
[2022-10-24] MEDS ORDERED: FERRIC CARBOXYMALTOSE INJ 750 MG in NS 250 ML (>50kg) IV ONE ×3 (14:00)
[2022-10-24] MEDS ORDERED: NS 1,000 ML IV SCH (14:00)
[2022-10-24 14:44] VITALS: BP 149/68
== END 2022-10-24 14:50 | disposition home or self-care (01) ==
LOC: M INFU 13:30
PROVIDERS: ATTEND Physician Assistant
DX: D50.9 Iron deficiency anemia, unspecified (principal); Z88.0 Allergy status to penicillin
CPT/HCPCS: 96365; J1439

== ENCOUNTER 2022-10-31 13:30 | Outpatient (CLI) | payer MEDICARE ==
[~2022-10-31] VITALS: Ht 167.6 cm; Wt 77.0 kg
[2022-10-31 13:45] VITALS: BP 128/58
[2022-10-31] MEDS ORDERED: FERRIC CARBOXYMALTOSE INJ 750 MG in NS 250 ML (>50kg) IV ONE ×3 (14:00)
[2022-10-31] MEDS ORDERED: NS 1,000 ML IV SCH (14:00)
[2022-10-31 14:50] VITALS: BP 133/78
== END 2022-10-31 14:50 | disposition home or self-care (01) ==
LOC: M INFU 13:30
PROVIDERS: ATTEND Physician Assistant
DX: D50.9 Iron deficiency anemia, unspecified (principal)
CPT/HCPCS: 96365; J1439

== ENCOUNTER → 2022-11-01 | Outpatient (CLI) | payer MEDICARE ==
[~2022-11-01] MED LIST changes: -ALBUTEROL SULFATE 2.5MG/0.5ML INH NEB SOLN INH PRN; -EPINEPHrine INJ 1 MG/ML 1ML AMP IM PRN; -diphenhydrAMINE 50MG/ML VIAL IV PRN; -methylPREDNISolone 125MG 2ML VIAL IV PRN
== END ==
LOC: M WHC 09:57
PROVIDERS: ATTEND Physician Assistant
DX: R39.9 Unspecified symptoms and signs involving the genitourinary system (principal)

== ENCOUNTER → 2022-11-04 | Outpatient (REF) | payer MEDICARE ==
[2022-11-04 14:02] LABS: APPEARANCE, URINE HAZY (CLEAR); BACTERIA, URINE AUTO NEGATIVE (NEGATIVE); BILIRUBIN, URINE AUTO NEGATIVE (NEGATIVE); BLOOD, URINE BLOOD 1+ (NEGATIVE); COLOR, URINE YELLOW (YELLOW); GLUCOSE, URINE (UA) AUTO NEGATIVE (NEGATIVE); KETONE, URINE AUTO NEGATIVE (NEGATIVE); LEUKOCYTE ESTERASE, URINE AUTO 1+ (NEGATIVE); MUCUS, URINE SMALL (NEGATIVE); NITRITE, URINE AUTO NEGATIVE (NEGATIVE); PROTEIN, URINE AUTO NEGATIVE (NEGATIVE); RBC, URINE AUTO 2 /HPF (0-3); SPECIFIC GRAVITY URINE AUTO 1.018 (1.002-1.035); SQUAMOUS EPITHELIAL CELL UR AU 9 /HPF (0-6); WBC, URINE AUTO 5 /HPF (0-3)
== END ==
LOC: M SFHCPLAZ 12:51
PROVIDERS: ATTEND Nurse Practitioner Family
DX: N39.0 Urinary tract infection, site not specified (principal)

== ENCOUNTER 2022-11-11 15:48 | Inpatient (IN) | payer MEDICARE ==
[~2022-11-11] VITALS: Ht 167.6 cm; Wt 76.7 kg
[2022-11-11 16:33] LABS: BASO # 0.1 10^3/uL (0.0-0.2); BASO % 1.6 % (0.0-1.0); EOS # 0.4 10^3/uL (0.0-0.5); EOS % 7.1 % (0.0-3.0); HEMATOCRIT 35.3 % (36.0-47.0); HEMOGLOBIN 11.1 g/dl (12.0-15.5); LYMPH # 1.7 10^3/uL (1.5-5.0); LYMPH % 31.6 % (24.0-44.0); MEAN CORPUSCULAR HEMOGLOBIN 28.9 pg (27.0-33.0); MEAN CORPUSCULAR HGB CONC 31.4 g/dl (32.0-36.5); MEAN CORPUSCULAR VOLUME 91.9 fl (80.0-96.0); MONO # 0.5 10^3/uL (0.0-0.8); MONO % 9.4 % (2.0-8.0); NEUTROPHILS # 2.8 10^3/uL (1.5-8.5); NEUTROPHILS % 50.1 % (36.0-66.0); PLATELET COUNT, AUTOMATED 128 10^3/uL (150-450); RED BLOOD COUNT 3.84 10^6/uL (4.00-5.40); WHITE BLOOD COUNT 5.5 10^3/uL (4.0-10.0)
[2022-11-11 16:57] LABS: ALBUMIN 3.2 G/DL (3.2-5.2); ALKALINE PHOSPHATASE 106 U/L (46-116); ALT/SGPT 16 U/L (7.0-40); AST/SGOT 31 U/L (<34); BILIRUBIN,DIRECT 0.2 MG/DL (<0.4); BILIRUBIN,TOTAL 0.6 MG/DL (0.3-1.2); BLOOD UREA NITROGEN 18 MG/DL (9-23); CALCIUM LEVEL 7.6 MG/DL (8.3-10.6); CARBON DIOXIDE LEVEL 26 MMOL/L (20-31); CHLORIDE LEVEL 108 MMOL/L (98-107); CREATININE FOR GFR 1.74 MG/DL (0.55-1.30); GLOMERULAR FILTRATION RATE 29.8 (>32); GLUCOSE, FASTING 138 MG/DL (74-106); POTASSIUM SERUM 3.4 MMOL/L (3.5-5.1); SODIUM LEVEL 142 MMOL/L (136-145); TOTAL PROTEIN 6.3 G/DL (5.7-8.2)
[2022-11-11 17:01] LABS: OSMOLALITY SERUM 307 MOSM/KG (280-301)
[2022-11-11] MEDS: NS 1,000 ML IV SCH ×2 (18:04→21:10)
[2022-11-11 18:57] LABS: VALPROIC ACID (DEPAKOTE) < 3.0 UG/ML (50.0-100.0)
[2022-11-11 19:16] LABS: RSV AMPLIFICATION NEGATIVE (NEGATIVE)
[2022-11-11] MEDS ORDERED: DEXTROSE 50% 50ML SYRINGE IV PRN (19:25)
[2022-11-11] MEDS ORDERED: GLUCAGON INJ 1MG VIAL SC PRN (19:25)
[2022-11-11] MEDS ORDERED: ACETAMINOPHEN TAB 650MG DOSE (2X325MG) PO PRN (19:25)
[2022-11-11] MEDS ORDERED: POTASSIUM CHLORIDE 10MEQ SR TABLET PO ONE (19:25)
[2022-11-11] MEDS ORDERED: GLUCOSE 4GM CHEW TABLET PO PRN (19:25)
[2022-11-11] MEDS ORDERED: LISI20TA35 PO (19:47)
[2022-11-11] MEDS ORDERED: CIPR250T3 PO (19:47)
[2022-11-11] MEDS ORDERED: MED REC COMMENT (19:47)
[2022-11-11] MEDS ORDERED: ASPI325T57 PO (19:49)
[2022-11-11] MEDS ORDERED: HOME MED LIST COMPLETE! XX SCH (19:50)
[2022-11-11] MEDS: ADVAIR HFA 115/21MCG INHALER INH SCH (20:00)
[2022-11-11 20:04] LABS: THYROID STIMULATING HORMONE 1.958 uIU/ML (0.55-4.78)
[2022-11-11 20:09] LABS: HEMOGLOBIN A1c 6.7 % (4.0-6.0)
[2022-11-11 20:41] VITALS: BP 137/63
[2022-11-11] MEDS ORDERED: DICYCLOMINE 10 MG CAP PO PRN (21:00)
[2022-11-11] MEDS: INSULIN LISPRO (NovoLOG) PER UNIT SC SCH (21:00)
[2022-11-11] MEDS ORDERED: ALBUTEROL 90 MCG/ACT 8GM HFA INHALER INH PRN (21:00)
[2022-11-11] MEDS ORDERED: cefTRIAXone SOD 1 GM in D5W MINI-BAG PLUS 50 ML IV SCH (21:00)
[2022-11-11] MEDS: METOPROLOL TART 25 MG TABLET PO SCH (21:00)
[2022-11-11] MEDS: ROSUVASTATIN 10 MG TAB (CRESTOR) PO SCH (23:35)
[2022-11-12] MEDS: NS 1,000 ML IV SCH ×2 (03:15→08:45)
[2022-11-12 05:40] VITALS: BP 130/67
[2022-11-12] MEDS: HEPARIN SOD (PORCINE) 5000UNITS/ML 1ML VIAL/SYRINGE SQ SCH ×2 (05:59→18:04)
[2022-11-12] MEDS: LEVOTHYROXINE 75MCG TABLET (0.075MG) PO SCH (05:59)
[2022-11-12 06:34] LABS: HEMATOCRIT 34.5 % (36.0-47.0); HEMOGLOBIN 10.3 g/dl (12.0-15.5); MEAN CORPUSCULAR HEMOGLOBIN 27.5 pg (27.0-33.0); MEAN CORPUSCULAR HGB CONC 29.9 g/dl (32.0-36.5); MEAN CORPUSCULAR VOLUME 92.2 fl (80.0-96.0); RED BLOOD COUNT 3.74 10^6/uL (4.00-5.40); WHITE BLOOD COUNT 3.2 10^3/uL (4.0-10.0)
[2022-11-12 07:03] LABS: ALBUMIN 3.1 G/DL (3.2-5.2); BILIRUBIN,TOTAL 0.6 MG/DL (0.3-1.2); CALCIUM LEVEL 7.7 MG/DL (8.3-10.6); CHOLESTEROL RISK RATIO 2.6 (<5); CREATININE FOR GFR 1.42 MG/DL (0.55-1.30); GLOMERULAR FILTRATION RATE 37.7 (>32); HDL CHOLESTEROL 47.6 MG/DL (>40); LDL CHOLESTEROL 52.2 MG/DL (<100); MAGNESIUM LEVEL 1.1 MG/DL (1.8-2.4); POTASSIUM SERUM 4.2 MMOL/L (3.5-5.1); TOTAL PROTEIN 6.1 G/DL (5.7-8.2)
[2022-11-12 07:24] LABS: PLATELET COUNT, AUTOMATED 95 10^3/uL (150-450)
[2022-11-12] MEDS: ADVAIR HFA 115/21MCG INHALER INH SCH ×2 (07:35→19:28)
[2022-11-12] MEDS: OMEPRAZOLE 20MG CAP PO SCH (08:57)
[2022-11-12] MEDS: ASPIRIN 325 MG TAB PO SCH (08:57)
[2022-11-12] MEDS: PARoxetine 20MG TABLET PO SCH (08:58)
[2022-11-12] MEDS: INSULIN LISPRO (NovoLOG) PER UNIT SC SCH ×4 (08:59→21:00)
[2022-11-12] MEDS: FLUTICASONE PROP 0.05% NASAL SPRAY 16 GM (FLONASE) SCH (09:02)
[2022-11-12] MEDS: METOPROLOL TART 25 MG TABLET PO SCH ×2 (09:06→21:00)
[2022-11-12] MEDS: MAG SULF 1GM/100ML (MAG RUN) 1 GM in IV 1 EA IV SCH ×4 (10:42→14:05)
[2022-11-12 14:00] VITALS: BP 138/62
[2022-11-12 14:06] LABS: IRON (FE) 83 UG/DL (50-170); PERCENT SATURATION 33.9 % (13.2-45.0); TOTAL IRON BINDING CAPACITY 245 UG/DL (250-425)
[2022-11-12 14:08] LABS: FERRITIN 550.8 NG/ML (7.3-270.7); FOLATE 6.31 NG/ML (>5.4)
[2022-11-12 14:09] LABS: VITAMIN B12 LEVEL 326 PG/ML (211-911)
[2022-11-12] MEDS ORDERED: LEVEMIR (INSULIN DETEMIR) 1 UNITS/0.01ML SC SCH (21:00)
[2022-11-12 21:46] VITALS: BP 119/77
[2022-11-12] MEDS: ROSUVASTATIN 10 MG TAB (CRESTOR) PO SCH (21:48)
[2022-11-12 22:00] VITALS: BP 112/80
[2022-11-13] MEDS: HEPARIN SOD (PORCINE) 5000UNITS/ML 1ML VIAL/SYRINGE SQ SCH (06:00)
[2022-11-13] MEDS: LEVOTHYROXINE 75MCG TABLET (0.075MG) PO SCH (06:33)
[2022-11-13 07:25] VITALS: BP 124/84
[2022-11-13] MEDS: ADVAIR HFA 115/21MCG INHALER INH SCH (07:53)
[2022-11-13] MEDS ORDERED: cefTRIAXone SOD 1 GM in D5W MINI-BAG PLUS 50 ML IV SCH (08:00)
[2022-11-13] MEDS: ASPIRIN 325 MG TAB PO SCH (08:20)
[2022-11-13 08:21] VITALS: BP 130/60
[2022-11-13] MEDS: PARoxetine 20MG TABLET PO SCH (08:21)
[2022-11-13] MEDS: METOPROLOL TART 25 MG TABLET PO SCH (08:21)
[2022-11-13] MEDS: OMEPRAZOLE 20MG CAP PO SCH (08:21)
[2022-11-13] MEDS: FLUTICASONE PROP 0.05% NASAL SPRAY 16 GM (FLONASE) SCH (08:22)
[2022-11-13] MEDS: INSULIN LISPRO (NovoLOG) PER UNIT SC SCH ×2 (08:22→11:47)
[2022-11-13 08:28] LABS: HEMATOCRIT 30.6 % (36.0-47.0); HEMOGLOBIN 9.4 g/dl (12.0-15.5); MEAN CORPUSCULAR HEMOGLOBIN 28.1 pg (27.0-33.0); MEAN CORPUSCULAR HGB CONC 30.7 g/dl (32.0-36.5); MEAN CORPUSCULAR VOLUME 91.3 fl (80.0-96.0); RED BLOOD COUNT 3.35 10^6/uL (4.00-5.40); WHITE BLOOD COUNT 2.4 10^3/uL (4.0-10.0)
[2022-11-13 08:38] LABS: CALCIUM LEVEL 7.8 MG/DL (8.3-10.6); CREATININE FOR GFR 1.28 MG/DL (0.55-1.30); GLOMERULAR FILTRATION RATE 42.5 (>32); POTASSIUM SERUM 4.1 MMOL/L (3.5-5.1)
[2022-11-13 08:50] LABS: PLATELET COUNT, AUTOMATED 80 10^3/uL (150-450)
[2022-11-13] MEDS ORDERED: CEFD300CAP PO (13:29)
[2022-11-13 14:00] VITALS: BP 128/60
[2022-11-14] MEDS ORDERED: CEFDINIR 300 MG CAP (OMNICEF) PO SCH (09:00)
[2022-11-14] MEDS ORDERED: hydroCHLOROthiazide 12.5 MG CAPSULE PO SCH (09:00)
== END 2022-11-13 15:08 | disposition home or self-care (01) | DRG 71 ==
LOC: M ED 15:48 → M ED INP 19:22 → M MSPAV 20:41
PROVIDERS: ADMIT Internal Medicine; ATTEND Student in an Organized Health Care Education/Training Program
DX: G93.41 Metabolic encephalopathy (principal); N39.0 Urinary tract infection, site not specified; N17.9 Acute kidney failure, unspecified; D61.818 Other pancytopenia; F32.A Depression, unspecified; K21.9 Gastro-esophageal reflux disease without esophagitis; E78.5 Hyperlipidemia, unspecified; F01.50 Vascular dementia, unspecified severity, without behavioral disturbance, psychotic disturbance, mood disturbance, and anxiety; E03.9 Hypothyroidism, unspecified; E11.22 Type 2 diabetes mellitus with diabetic chronic kidney disease; J44.9 Chronic obstructive pulmonary disease, unspecified; I12.9 Hypertensive chronic kidney disease with stage 1 through stage 4 chronic kidney disease, or unspecified chronic kidney disease; K58.9 Irritable bowel syndrome, unspecified; G47.33 Obstructive sleep apnea (adult) (pediatric); N18.32 Chronic kidney disease, stage 3b; G40.909 Epilepsy, unspecified, not intractable, without status epilepticus; K75.81 Nonalcoholic steatohepatitis (NASH); R00.1 Bradycardia, unspecified; E83.42 Hypomagnesemia; Z90.49 Acquired absence of other specified parts of digestive tract; Z90.79 Acquired absence of other genital organ(s); Z98.49 Cataract extraction status, unspecified eye; Z20.822 Contact with and (suspected) exposure to COVID-19; Z79.82 Long term (current) use of aspirin; Z79.890 Hormone replacement therapy; Z79.899 Other long term (current) drug therapy

== ENCOUNTER → 2022-11-21 | Outpatient (REF) | payer MEDICARE ==
[~2022-11-21] MED LIST changes: +ASPI325T57 PO; +CEFD300CAP PO; +CEPH250T PO; +CIPR250T3 PO; +LISI20TA35 PO; +MED REC COMMENT
[2022-11-21 17:46] LABS: BASO # 0.1 10^3/uL (0.0-0.2); BASO % 1.9 % (0.0-1.0); EOS # 0.3 10^3/uL (0.0-0.5); EOS % 5.4 % (0.0-3.0); HEMATOCRIT 37.3 % (36.0-47.0); HEMOGLOBIN 11.4 g/dl (12.0-15.5); LYMPH # 1.6 10^3/uL (1.5-5.0); MEAN CORPUSCULAR HEMOGLOBIN 28.4 pg (27.0-33.0); MEAN CORPUSCULAR HGB CONC 30.6 g/dl (32.0-36.5); MONO # 0.5 10^3/uL (0.0-0.8); MONO % 8.1 % (2.0-8.0); NEUTROPHILS # 3.2 10^3/uL (1.5-8.5); NEUTROPHILS % 56.2 % (36.0-66.0); PLATELET COUNT, AUTOMATED 145 10^3/uL (150-450); RED BLOOD COUNT 4.01 10^6/uL (4.00-5.40); WHITE BLOOD COUNT 5.7 10^3/uL (4.0-10.0)
[2022-11-21 17:47] LABS: COLLAGEN EPINEPHRINE 150 SECONDS (74-162)
[2022-11-21 17:58] LABS: INR 1.2; PROTHROMBIN TIME 15.5 SECONDS (12.5-14.5)
[2022-11-21 17:59] LABS: PARTIAL THROMBOPLASTIN TIME 38.7 SECONDS (24.8-34.2)
[2022-11-21 18:11] LABS: ALBUMIN 3.2 G/DL (3.2-5.2); BILIRUBIN,TOTAL 0.6 MG/DL (0.3-1.2); C REACTIVE PROTEIN QUANTITATIV 0.6 MG/DL (<1.0); CALCIUM LEVEL 8.4 MG/DL (8.3-10.6); CREATININE FOR GFR 1.44 MG/DL (0.55-1.30); FERRITIN 570.4 NG/ML (7.3-270.7); GLOMERULAR FILTRATION RATE 37.1 (>32); PERCENT SATURATION 33.7 % (13.2-45.0); POTASSIUM SERUM 3.6 MMOL/L (3.5-5.1); TOTAL PROTEIN 6.6 G/DL (5.7-8.2)
== END ==
LOC: M SFHCPLAZ 16:34
PROVIDERS: ATTEND Physician Assistant
DX: N18.30 Chronic kidney disease, stage 3 unspecified (principal); D50.9 Iron deficiency anemia, unspecified; R41.82 Altered mental status, unspecified

== ENCOUNTER → 2022-11-22 | Outpatient (REF) | payer MEDICARE ==
[~2022-11-22] MED LIST changes: -CEPH250T PO
[2022-11-22 11:26] LABS: APPEARANCE, URINE HAZY (CLEAR); BACTERIA, URINE AUTO 1+ (NEGATIVE); BILIRUBIN, URINE AUTO NEGATIVE (NEGATIVE); BLOOD, URINE BLOOD 1+ (NEGATIVE); COLOR, URINE YELLOW (YELLOW); GLUCOSE, URINE (UA) AUTO NEGATIVE (NEGATIVE); KETONE, URINE AUTO NEGATIVE (NEGATIVE); LEUKOCYTE ESTERASE, URINE AUTO TRACE (NEGATIVE); MUCUS, URINE SMALL (NEGATIVE); NITRITE, URINE AUTO NEGATIVE (NEGATIVE); PROTEIN, URINE AUTO NEGATIVE (NEGATIVE); RBC, URINE AUTO 3 /HPF (0-3); SPECIFIC GRAVITY URINE AUTO 1.016 (1.002-1.035); SQUAMOUS EPITHELIAL CELL UR AU 7 /HPF (0-6); UROBILINOGEN, URINE AUTO 0.2 mg/dL (0.0-2.0); WBC, URINE AUTO 8 /HPF (0-3)
== END ==
LOC: M SFHCPLAZ 10:01
PROVIDERS: ATTEND Physician Assistant
DX: R39.9 Unspecified symptoms and signs involving the genitourinary system (principal)

== ENCOUNTER 2022-11-27 19:36 | Observation (INO) | payer MEDICARE ==
[~2022-11-27] VITALS: Ht 172.7 cm; Wt 74.9 kg
[2022-11-27 21:06] LABS: BASO # 0.1 10^3/uL (0.0-0.2); BASO % 1.3 % (0.0-1.0); EOS # 0.3 10^3/uL (0.0-0.5); EOS % 6.4 % (0.0-3.0); HEMATOCRIT 35.7 % (36.0-47.0); HEMOGLOBIN 11.2 g/dl (12.0-15.5); LYMPH # 1.2 10^3/uL (1.5-5.0); LYMPH % 27.1 % (24.0-44.0); MEAN CORPUSCULAR HEMOGLOBIN 29.2 pg (27.0-33.0); MEAN CORPUSCULAR HGB CONC 31.4 g/dl (32.0-36.5); MONO # 0.4 10^3/uL (0.0-0.8); MONO % 7.7 % (2.0-8.0); NEUTROPHILS # 2.6 10^3/uL (1.5-8.5); NEUTROPHILS % 57.1 % (36.0-66.0); PLATELET COUNT, AUTOMATED 107 10^3/uL (150-450); RED BLOOD COUNT 3.84 10^6/uL (4.00-5.40); WHITE BLOOD COUNT 4.5 10^3/uL (4.0-10.0)
[2022-11-27 21:31] LABS: ALBUMIN 3.1 G/DL (3.2-5.2); BILIRUBIN,DIRECT 0.3 MG/DL (<0.4); BILIRUBIN,TOTAL 0.7 MG/DL (0.3-1.2); CALCIUM LEVEL 8.4 MG/DL (8.3-10.6); CREATININE FOR GFR 1.12 MG/DL (0.55-1.30); GLOMERULAR FILTRATION RATE 49.6 (>32); POTASSIUM SERUM 3.9 MMOL/L (3.5-5.1); TOTAL PROTEIN 6.2 G/DL (5.7-8.2)
[2022-11-27 21:33] LABS: THYROID STIMULATING HORMONE 1.254 uIU/ML (0.55-4.78)
[2022-11-27 21:52] LABS: RSV AMPLIFICATION NEGATIVE (NEGATIVE)
[2022-11-27] MEDS ORDERED: cefTRIAXone SOD 1 GM in D5W MINI-BAG PLUS 50 ML IV ONE (21:55)
[2022-11-27] MEDS: METOPROLOL TART 25 MG TABLET PO SCH (23:15)
[2022-11-27] MEDS ORDERED: MOM 30ML SUSPENSION UDC PO PRN (23:15)
[2022-11-27] MEDS ORDERED: HOME MED LIST COMPLETE! XX SCH (23:15)
[2022-11-27] MEDS ORDERED: DEXTROSE 50% 50ML SYRINGE IV PRN (23:15)
[2022-11-27] MEDS ORDERED: GLUCAGON INJ 1MG VIAL SC PRN (23:15)
[2022-11-27] MEDS: ADVAIR HFA 115/21MCG INHALER INH SCH (23:15)
[2022-11-27] MEDS ORDERED: ROSUVASTATIN 10 MG TAB (CRESTOR) PO SCH (23:15)
[2022-11-27] MEDS ORDERED: ALBUTEROL 90 MCG/ACT 8GM HFA INHALER INH PRN (23:15)
[2022-11-27] MEDS ORDERED: ACETAMINOPHEN TAB 650MG DOSE (2X325MG) PO PRN (23:15)
[2022-11-27] MEDS ORDERED: GLUCOSE 4GM CHEW TABLET PO PRN (23:15)
[2022-11-28 00:50] VITALS: BP 131/64
[2022-11-28 06:00] VITALS: BP 128/61
[2022-11-28] MEDS ORDERED: LEVOTHYROXINE 75MCG TABLET (0.075MG) PO SCH (06:00)
[2022-11-28] MEDS: ADVAIR HFA 115/21MCG INHALER INH SCH (07:00)
[2022-11-28] MEDS ORDERED: CEFDINIR 300 MG CAP (OMNICEF) PO SCH (09:00)
[2022-11-28] MEDS ORDERED: DOCUSATE SODIUM 100MG CAPSULE PO SCH (09:00)
[2022-11-28] MEDS ORDERED: OMEPRAZOLE 20MG CAP PO SCH (09:00)
[2022-11-28] MEDS ORDERED: PARoxetine 20MG TABLET PO SCH (09:00)
[2022-11-28] MEDS ORDERED: ASPIRIN 325 MG TAB PO SCH (09:00)
[2022-11-28] MEDS: INSULIN LISPRO (NovoLOG) PER UNIT SC SCH ×3 (10:03→17:30)
[2022-11-28 10:07] VITALS: BP 127/60
[2022-11-28] MEDS: METOPROLOL TART 25 MG TABLET PO SCH (10:07)
[2022-11-28 14:00] VITALS: BP 139/94
[2022-11-28] MEDS ORDERED: CEFD300CAP PO (16:48)
[2022-11-28] MEDS ORDERED: CEPH250T PO (16:48)
[2022-11-28] MEDS ORDERED: INSULIN LISPRO (NovoLOG) PER UNIT SC SCH (21:00)
[2022-11-28] MEDS ORDERED: cefTRIAXone SOD 1 GM in D5W MINI-BAG PLUS 50 ML IV SCH (22:00)
[2022-12-03] MEDS ORDERED: CEPHALEXIN 250MG CAPSULE PO SCH (09:00)
== END 2022-11-28 17:38 | disposition home or self-care (01) ==
LOC: M ED 19:36 → M ED INP 23:14 → M MSPAV 11-28 00:57
PROVIDERS: ADMIT Internal Medicine; ATTEND Student in an Organized Health Care Education/Training Program
DX: G93.41 Metabolic encephalopathy (principal); N39.0 Urinary tract infection, site not specified; B95.61 Methicillin susceptible Staphylococcus aureus infection as the cause of diseases classified elsewhere; F01.50 Vascular dementia, unspecified severity, without behavioral disturbance, psychotic disturbance, mood disturbance, and anxiety; N18.30 Chronic kidney disease, stage 3 unspecified; E11.22 Type 2 diabetes mellitus with diabetic chronic kidney disease; I12.9 Hypertensive chronic kidney disease with stage 1 through stage 4 chronic kidney disease, or unspecified chronic kidney disease; J45.909 Unspecified asthma, uncomplicated; K58.9 Irritable bowel syndrome, unspecified; E03.9 Hypothyroidism, unspecified; K76.0 Fatty (change of) liver, not elsewhere classified; G47.33 Obstructive sleep apnea (adult) (pediatric); K22.2 Esophageal obstruction; R56.9 Unspecified convulsions; K21.9 Gastro-esophageal reflux disease without esophagitis; F32.A Depression, unspecified; E78.5 Hyperlipidemia, unspecified; J44.9 Chronic obstructive pulmonary disease, unspecified; Z87.440 Personal history of urinary (tract) infections; Z91.14 Patient's other noncompliance with medication regimen; Z79.899 Other long term (current) drug therapy; Z79.890 Hormone replacement therapy; Z79.82 Long term (current) use of aspirin; Z79.51 Long term (current) use of inhaled steroids; Z79.4 Long term (current) use of insulin
CPT/HCPCS: 70450; 71045; 80048; 80076; 81001; 84443; 84484; 85025; 87088; 87186; 87631; 93005; 93041; 94640; 94760; 96365; 97161; 97165; 99285; G0378; J0696; J1815

== ENCOUNTER → 2023-01-02 | Outpatient (REF) | payer MEDICARE ==
[~2023-01-02] MED LIST changes: +CEPH250T PO
[2023-01-02 11:25] LABS: APPEARANCE, URINE CLOUDY (CLEAR); BACTERIA, URINE AUTO NEGATIVE (NEGATIVE); BILIRUBIN, URINE AUTO NEGATIVE (NEGATIVE); BLOOD, URINE BLOOD 2+ (NEGATIVE); COLOR, URINE AMBER (YELLOW); GLUCOSE, URINE (UA) AUTO NEGATIVE (NEGATIVE); KETONE, URINE AUTO NEGATIVE (NEGATIVE); LEUKOCYTE ESTERASE, URINE AUTO 2+ (NEGATIVE); NITRITE, URINE AUTO NEGATIVE (NEGATIVE); PROTEIN, URINE AUTO 1+ mg/dL (NEGATIVE); RBC, URINE AUTO TNTC /HPF (0-3); SPECIFIC GRAVITY URINE AUTO 1.019 (1.002-1.035); SQUAMOUS EPITHELIAL CELL UR AU 3 /HPF (0-6); UROBILINOGEN, URINE AUTO 0.2 mg/dL (0.0-2.0); WBC, URINE AUTO 83 /HPF (0-3)
== END ==
LOC: M SFHCPLAZ 10:06
PROVIDERS: ATTEND Family Medicine
DX: R82.71 Bacteriuria (principal)

== ENCOUNTER → 2023-01-06 | Outpatient (REF) | payer MEDICARE | LOC: M SFHCPLAZ 10:04 | PROVIDERS: ATTEND Family Medicine | DX: R82.71 Bacteriuria (principal) ==

== ENCOUNTER 2023-01-12 09:47 | Emergency (ER) | payer MEDICARE ==
[~2023-01-12] VITALS: Ht 160 cm; Wt 73.1 kg
[2023-01-12 12:45] VITALS: BP 134/63
== END 2023-01-12 12:57 | disposition home or self-care (01) ==
LOC: M ED 09:47
DX: S52.501A Unspecified fracture of the lower end of right radius, initial encounter for closed fracture (principal); W19.XXXA Unspecified fall, initial encounter; Y92.019 Unspecified place in single-family (private) house as the place of occurrence of the external cause; Y93.89 Activity, other specified; Y99.8 Other external cause status; M54.9 Dorsalgia, unspecified; E78.5 Hyperlipidemia, unspecified; E03.9 Hypothyroidism, unspecified; G47.33 Obstructive sleep apnea (adult) (pediatric); K58.9 Irritable bowel syndrome, unspecified; R51.9 Headache, unspecified; N18.9 Chronic kidney disease, unspecified; Z79.899 Other long term (current) drug therapy; Z79.4 Long term (current) use of insulin

== ENCOUNTER → 2023-04-23 | Outpatient (REF) | payer MEDICARE ==
[~2023-04-23] MED LIST changes: +DICY-61 PO; -DICY10CA13 PO
[2023-04-23 09:18] LABS: HEMATOCRIT 32.6 % (36.0-47.0); HEMOGLOBIN 10.7 g/dl (12.0-15.5); MEAN CORPUSCULAR HEMOGLOBIN 32.1 pg (27.0-33.0); MEAN CORPUSCULAR HGB CONC 32.8 g/dl (32.0-36.5); MEAN CORPUSCULAR VOLUME 97.9 fl (80.0-96.0); PLATELET COUNT, AUTOMATED 114 10^3/uL (150-450); RED BLOOD COUNT 3.33 10^6/uL (4.00-5.40)
[2023-04-23 09:37] LABS: ALBUMIN 2.9 G/DL (3.2-5.2); BILIRUBIN,TOTAL 0.6 MG/DL (0.3-1.2); CALCIUM LEVEL 8.7 MG/DL (8.3-10.6); CHOLESTEROL RISK RATIO 2.29 (<5); CREATININE FOR GFR 1.14 MG/DL (0.55-1.30); GLOMERULAR FILTRATION RATE 48.6 (>32); HDL CHOLESTEROL 54.5 MG/DL (>40); LDL CHOLESTEROL 50.5 MG/DL (<100); NON-HDL-C 70.5 MG/DL; TOTAL PROTEIN 5.8 G/DL (5.7-8.2)
[2023-04-23 09:47] LABS: HEMOGLOBIN A1c 5.8 % (4.0-6.0)
== END ==
LOC: SKLAB2 06:39
PROVIDERS: ATTEND Internal Medicine
DX: R46.89 Other symptoms and signs involving appearance and behavior (principal); Z79.899 Other long term (current) drug therapy

== ENCOUNTER → 2023-05-06 | Outpatient (REF) | payer MEDICARE | LOC: SKLAB6 06:44 | PROVIDERS: ATTEND Internal Medicine | DX: Z53.8 Procedure and treatment not carried out for other reasons (principal) ==

== ENCOUNTER → 2023-06-02 | Outpatient (REF) | payer MEDICARE ==
[~2023-06-02] MED LIST changes: +ACET-907 PO; +ALBU8.5H INH; +ASPI-569 PO; +BISA10SU4 PR; +BUSP10TA PO; +ESTR1CRE PV; +FLEEENE12 PR; -FLON1SPR; +FLON1SPR NARES; +GLUC1KIT IM; +IBUP1TAB5 PO; +LACT296L PO; +LOPE2TAB12 PO; +LORA-931 PO; +MILKSUS3 PO; +MIRT-60 PO; +ONDA-195 PO; +ROSU20TA61 PO; +TUMS500C PO; +VIMP150T PO; +ZOLO25TA PO
[2023-06-02 13:51] LABS: HEMATOCRIT 37.5 % (36.0-47.0); HEMOGLOBIN 12.3 g/dl (12.0-15.5); MEAN CORPUSCULAR HEMOGLOBIN 31.4 pg (27.0-33.0); MEAN CORPUSCULAR HGB CONC 32.8 g/dl (32.0-36.5); MEAN CORPUSCULAR VOLUME 95.7 fl (80.0-96.0); PLATELET COUNT, AUTOMATED 130 10^3/uL (150-450); RED BLOOD COUNT 3.92 10^6/uL (4.00-5.40); WHITE BLOOD COUNT 5.6 10^3/uL (4.0-10.0)
[2023-06-02 14:10] LABS: ALBUMIN 3.1 G/DL (3.2-5.2); BILIRUBIN,TOTAL 0.8 MG/DL (0.3-1.2); CALCIUM LEVEL 8.7 MG/DL (8.3-10.6); CREATININE FOR GFR 5.85 MG/DL (0.55-1.30); GLOMERULAR FILTRATION RATE 7.4 (>32); POTASSIUM SERUM 3.8 MMOL/L (3.5-5.1); TOTAL PROTEIN 6.1 G/DL (5.7-8.2)
[2023-06-02 14:12] LABS: THYROID STIMULATING HORMONE 0.417 uIU/ML (0.55-4.78)
[2023-06-02 15:12] LABS: HEMOGLOBIN A1c 5.6 % (4.0-6.0)
== END ==
LOC: SKLAB6 13:14
PROVIDERS: ATTEND Internal Medicine
DX: E11.9 Type 2 diabetes mellitus without complications (principal); E03.9 Hypothyroidism, unspecified

== ENCOUNTER → 2023-06-17 | Outpatient (REF) | payer MEDICARE ==
[~2023-06-17] MED LIST changes: +LEVO25TA5 PO; +QUET1TAB17 PO
[2023-06-17 08:44] LABS: HEMATOCRIT 27.8 % (36.0-47.0); HEMOGLOBIN 9.1 g/dl (12.0-15.5); MEAN CORPUSCULAR HEMOGLOBIN 32.3 pg (27.0-33.0); MEAN CORPUSCULAR HGB CONC 32.7 g/dl (32.0-36.5); MEAN CORPUSCULAR VOLUME 98.6 fl (80.0-96.0); RED BLOOD COUNT 2.82 10^6/uL (4.00-5.40); WHITE BLOOD COUNT 2.8 10^3/uL (4.0-10.0)
[2023-06-17 08:46] LABS: PLATELET COUNT, AUTOMATED 82 10^3/uL (150-450)
[2023-06-17 09:14] LABS: ALBUMIN 2.4 G/DL (3.2-5.2); BILIRUBIN,TOTAL 0.7 MG/DL (0.3-1.2); CALCIUM LEVEL 7.1 MG/DL (8.3-10.6); CREATININE FOR GFR 1.14 MG/DL (0.55-1.30); GLOMERULAR FILTRATION RATE 48.5 (>32); POTASSIUM SERUM 3.6 MMOL/L (3.5-5.1); TOTAL PROTEIN 4.7 G/DL (5.7-8.2)
== END ==
LOC: SKLAB6 07:00
PROVIDERS: ATTEND Internal Medicine
DX: Z79.899 Other long term (current) drug therapy (principal)

== ENCOUNTER → 2023-06-18 | Outpatient (REF) | payer MEDICARE ==
[2023-06-19 08:46] LABS: HEMATOCRIT 27.8 % (36.0-47.0)
== END ==
LOC: SKLAB6 14:01
PROVIDERS: ATTEND Internal Medicine
DX: Z79.899 Other long term (current) drug therapy (principal)

== ENCOUNTER → 2023-06-19 | Outpatient (REF) | payer MEDICARE ==
[2023-06-19 11:42] LABS: HEMATOCRIT 26.4 % (36.0-47.0)
== END ==
LOC: SKLAB6 07:51
PROVIDERS: ATTEND Internal Medicine
DX: Z79.899 Other long term (current) drug therapy (principal)

== ENCOUNTER → 2023-06-23 | Outpatient (REF) | payer MEDICARE ==
[2023-06-23 08:37] LABS: HEMATOCRIT 28.7 % (36.0-47.0); HEMOGLOBIN 9.5 g/dl (12.0-15.5); MEAN CORPUSCULAR HEMOGLOBIN 32.2 pg (27.0-33.0); MEAN CORPUSCULAR HGB CONC 33.1 g/dl (32.0-36.5); MEAN CORPUSCULAR VOLUME 97.3 fl (80.0-96.0); PLATELET COUNT, AUTOMATED 117 10^3/uL (150-450); RED BLOOD COUNT 2.95 10^6/uL (4.00-5.40); WHITE BLOOD COUNT 4.4 10^3/uL (4.0-10.0)
[2023-06-23 09:21] LABS: CALCIUM LEVEL 7.4 MG/DL (8.3-10.6); CREATININE FOR GFR 1.65 MG/DL (0.55-1.30); GLOMERULAR FILTRATION RATE 31.6 (>32); POTASSIUM SERUM 3.3 MMOL/L (3.5-5.1)
== END ==
LOC: SKLAB6 07:00
PROVIDERS: ATTEND Internal Medicine
DX: Z79.899 Other long term (current) drug therapy (principal)

== ENCOUNTER 2023-06-25 12:07 | Emergency (ER) | payer MEDICARE ==
[~2023-06-25] VITALS: Ht 167.6 cm; Wt 56.8 kg
[2023-06-25 12:26] VITALS: TEMP 98
[2023-06-25 14:30] VITALS: BP 121/58; O2SAT 98
== END 2023-06-25 14:50 | disposition home or self-care (01) ==
LOC: M ED 12:07 → EDBD 12:07 → M ED 14:50
DX: S00.93XA Contusion of unspecified part of head, initial encounter (principal); S30.0XXA Contusion of lower back and pelvis, initial encounter; S80.12XA Contusion of left lower leg, initial encounter; W01.198A Fall on same level from slipping, tripping and stumbling with subsequent striking against other object, initial encounter; M47.816 Spondylosis without myelopathy or radiculopathy, lumbar region; E11.9 Type 2 diabetes mellitus without complications; I10 Essential (primary) hypertension; E78.5 Hyperlipidemia, unspecified; N18.30 Chronic kidney disease, stage 3 unspecified; M47.892 Other spondylosis, cervical region; Z79.82 Long term (current) use of aspirin; Z79.899 Other long term (current) drug therapy; Z88.8 Allergy status to other drugs, medicaments and biological substances

== ENCOUNTER 2023-06-26 09:39 | Emergency (ER) | payer MEDICARE ==
[2023-06-26 09:40] VITALS: TEMP 97.8
[2023-06-26 14:03] LABS: BASO # 0.1 10^3/uL (0.0-0.2); BASO % 1.8 % (0.0-1.0); EOS # 0.2 10^3/uL (0.0-0.5); EOS % 4.5 % (0.0-3.0); HEMATOCRIT 24.1 % (36.0-47.0); HEMOGLOBIN 7.9 g/dl (12.0-15.5); LYMPH # 1.4 10^3/uL (1.5-5.0); LYMPH % 30.9 % (24.0-44.0); MEAN CORPUSCULAR HEMOGLOBIN 32.6 pg (27.0-33.0); MEAN CORPUSCULAR HGB CONC 32.8 g/dl (32.0-36.5); MEAN CORPUSCULAR VOLUME 99.6 fl (80.0-96.0); MONO # 0.3 10^3/uL (0.0-0.8); MONO % 6.5 % (2.0-8.0); NEUTROPHILS # 2.5 10^3/uL (1.5-8.5); NEUTROPHILS % 55.8 % (36.0-66.0); PLATELET COUNT, AUTOMATED 155 10^3/uL (150-450); RED BLOOD COUNT 2.42 10^6/uL (4.00-5.40); WHITE BLOOD COUNT 4.4 10^3/uL (4.0-10.0)
[2023-06-26 14:51] LABS: CALCIUM LEVEL 7.2 MG/DL (8.3-10.6); CREATININE FOR GFR 1.62 MG/DL (0.55-1.30); GLOMERULAR FILTRATION RATE 32.3 (>32); POTASSIUM SERUM 3.6 MMOL/L (3.5-5.1)
[2023-06-26] MEDS ORDERED: ISOVUE-370 76% 100ML VIAL As Ordered ONE (14:58)
[2023-06-26 16:12] VITALS: BP 112/55; O2SAT 100
== END 2023-06-26 16:22 | disposition home or self-care (01) ==
LOC: M ED 09:39
DX: S09.90XA Unspecified injury of head, initial encounter (principal); W06.XXXA Fall from bed, initial encounter; Y92.129 Unspecified place in nursing home as the place of occurrence of the external cause; F03.90 Unspecified dementia, unspecified severity, without behavioral disturbance, psychotic disturbance, mood disturbance, and anxiety; E11.9 Type 2 diabetes mellitus without complications; E03.9 Hypothyroidism, unspecified; I10 Essential (primary) hypertension; D50.9 Iron deficiency anemia, unspecified; K58.9 Irritable bowel syndrome, unspecified; J45.909 Unspecified asthma, uncomplicated; Z79.82 Long term (current) use of aspirin; Z79.899 Other long term (current) drug therapy; Z88.8 Allergy status to other drugs, medicaments and biological substances
CPT/HCPCS: 70450; 72125; 74177; 80047; 80048; 81001; 82550; 85025; 87088; 87186; 93005; 99284; Q9967

== ENCOUNTER → 2023-06-27 | Outpatient (REF) | payer MEDICARE ==
[2023-06-27 11:48] LABS: BASO # 0.1 10^3/uL (0.0-0.2); EOS # 0.3 10^3/uL (0.0-0.5); EOS % 7.5 % (0.0-3.0); HEMATOCRIT 24.6 % (36.0-47.0); LYMPH % 29.8 % (24.0-44.0); MEAN CORPUSCULAR HEMOGLOBIN 32.1 pg (27.0-33.0); MEAN CORPUSCULAR HGB CONC 32.5 g/dl (32.0-36.5); MEAN CORPUSCULAR VOLUME 98.8 fl (80.0-96.0); MONO # 0.3 10^3/uL (0.0-0.8); MONO % 7.8 % (2.0-8.0); NEUTROPHILS # 1.8 10^3/uL (1.5-8.5); NEUTROPHILS % 52.6 % (36.0-66.0); PLATELET COUNT, AUTOMATED 169 10^3/uL (150-450); RED BLOOD COUNT 2.49 10^6/uL (4.00-5.40); WHITE BLOOD COUNT 3.5 10^3/uL (4.0-10.0)
== END ==
LOC: SKLAB6 07:25
PROVIDERS: ATTEND Internal Medicine
DX: S30.1XXA Contusion of abdominal wall, initial encounter (principal)

== ENCOUNTER → 2023-06-30 | Outpatient (REF) | payer MEDICARE ==
[2023-06-30 12:49] LABS: HEMATOCRIT 26.9 % (36.0-47.0); HEMOGLOBIN 8.6 g/dl (12.0-15.5); MEAN CORPUSCULAR HEMOGLOBIN 32.7 pg (27.0-33.0); MEAN CORPUSCULAR VOLUME 102.3 fl (80.0-96.0); PLATELET COUNT, AUTOMATED 224 10^3/uL (150-450); RED BLOOD COUNT 2.63 10^6/uL (4.00-5.40); WHITE BLOOD COUNT 6.1 10^3/uL (4.0-10.0)
[2023-06-30 13:19] LABS: CALCIUM LEVEL 7.8 MG/DL (8.3-10.6); CREATININE FOR GFR 1.81 MG/DL (0.55-1.30); GLOMERULAR FILTRATION RATE 28.4 (>32); POTASSIUM SERUM 4.4 MMOL/L (3.5-5.1)
== END ==
LOC: SKLAB6 07:00
PROVIDERS: ATTEND Internal Medicine
DX: Z79.899 Other long term (current) drug therapy (principal)

== ENCOUNTER → 2023-07-03 | Outpatient (REF) | payer MEDICARE ==
[2023-07-03 10:19] LABS: HEMATOCRIT 28.6 % (36.0-47.0); HEMOGLOBIN 9.1 g/dl (12.0-15.5); MEAN CORPUSCULAR HEMOGLOBIN 33.3 pg (27.0-33.0); MEAN CORPUSCULAR HGB CONC 31.8 g/dl (32.0-36.5); MEAN CORPUSCULAR VOLUME 104.8 fl (80.0-96.0); PLATELET COUNT, AUTOMATED 181 10^3/uL (150-450); RED BLOOD COUNT 2.73 10^6/uL (4.00-5.40); WHITE BLOOD COUNT 4.6 10^3/uL (4.0-10.0)
== END ==
LOC: SKLAB6 06:30
PROVIDERS: ATTEND Internal Medicine
DX: I95.9 Hypotension, unspecified (principal); Z79.899 Other long term (current) drug therapy

== ENCOUNTER → 2023-07-10 | Outpatient (REF) | payer MEDICARE ==
[2023-07-10 08:41] LABS: HEMATOCRIT 26.1 % (36.0-47.0); HEMOGLOBIN 8.3 g/dl (12.0-15.5); MEAN CORPUSCULAR HEMOGLOBIN 33.6 pg (27.0-33.0); MEAN CORPUSCULAR HGB CONC 31.8 g/dl (32.0-36.5); MEAN CORPUSCULAR VOLUME 105.7 fl (80.0-96.0); PLATELET COUNT, AUTOMATED 109 10^3/uL (150-450); RED BLOOD COUNT 2.47 10^6/uL (4.00-5.40); WHITE BLOOD COUNT 2.3 10^3/uL (4.0-10.0)
[2023-07-10 09:11] LABS: ALBUMIN 2.3 G/DL (3.2-5.2); ALKALINE PHOSPHATASE 102 U/L (46-116); ALT/SGPT < 9 U/L (7.0-40); AST/SGOT 22 U/L (<34); BILIRUBIN,TOTAL 1.1 MG/DL (0.3-1.2); BLOOD UREA NITROGEN 21 MG/DL (9-23); CALCIUM LEVEL 7.8 MG/DL (8.3-10.6); CARBON DIOXIDE LEVEL 26 MMOL/L (20-31); CHLORIDE LEVEL 109 MMOL/L (98-107); CREATININE FOR GFR 1.37 MG/DL (0.55-1.30); GLOMERULAR FILTRATION RATE 39.2 (>32); GLUCOSE, FASTING 83 MG/DL (74-106); POTASSIUM SERUM 3.7 MMOL/L (3.5-5.1); SODIUM LEVEL 144 MMOL/L (136-145); TOTAL PROTEIN 4.9 G/DL (5.7-8.2)
== END ==
LOC: SKLAB6 07:17
PROVIDERS: ATTEND Internal Medicine
DX: Z79.899 Other long term (current) drug therapy (principal)

== ENCOUNTER → 2023-07-22 | Outpatient (REF) | payer MEDICARE | LOC: M RAD 17:56 | PROVIDERS: ATTEND Internal Medicine | DX: M54.50 Low back pain, unspecified (principal); M54.14 Radiculopathy, thoracic region ==

== ENCOUNTER → 2023-07-24 | Outpatient (REF) | payer MEDICARE ==
[2023-07-24 12:15] LABS: HEMATOCRIT 33.1 % (36.0-47.0); HEMOGLOBIN 10.5 g/dl (12.0-15.5); MEAN CORPUSCULAR HEMOGLOBIN 33.2 pg (27.0-33.0); MEAN CORPUSCULAR HGB CONC 31.7 g/dl (32.0-36.5); MEAN CORPUSCULAR VOLUME 104.7 fl (80.0-96.0); PLATELET COUNT, AUTOMATED 151 10^3/uL (150-450); RED BLOOD COUNT 3.16 10^6/uL (4.00-5.40)
[2023-07-24 12:42] LABS: CALCIUM LEVEL 8.3 MG/DL (8.3-10.6); CHOLESTEROL RISK RATIO 3.78 (<5); CREATININE FOR GFR 1.76 MG/DL (0.55-1.30); FREE T4 0.74 NG/DL (0.89-1.76); GLOMERULAR FILTRATION RATE 29.4 (>32); HDL CHOLESTEROL 44.6 MG/DL (>40); LDL CHOLESTEROL 95.2 MG/DL (<100); NON-HDL-C 124.4 MG/DL; POTASSIUM SERUM 3.9 MMOL/L (3.5-5.1); THYROID STIMULATING HORMONE 34.15 uIU/ML (0.55-4.78)
[2023-07-24 12:51] LABS: HEMOGLOBIN A1c 4.8 % (4.0-6.0)
== END ==
LOC: SKLAB6 07:00
PROVIDERS: ATTEND Internal Medicine
DX: D64.9 Anemia, unspecified (principal); E03.9 Hypothyroidism, unspecified; E11.9 Type 2 diabetes mellitus without complications; E78.5 Hyperlipidemia, unspecified

== ENCOUNTER 2023-07-30 04:36 | Emergency (ER) | payer MEDICARE ==
[~2023-07-30] VITALS: Ht 152.4 cm; Wt 63.6 kg
[2023-07-30] MEDS ORDERED: LIDOCAINE W/EPINEPHRINE 1% 20ML VIAL SC ONE (06:20)
[2023-07-30 06:28] LABS: BASO % 1.5 % (0.0-1.0); EOS # 0.1 10^3/uL (0.0-0.5); EOS % 3.7 % (0.0-3.0); HEMATOCRIT 28.8 % (36.0-47.0); HEMOGLOBIN 9.3 g/dl (12.0-15.5); LYMPH # 0.7 10^3/uL (1.5-5.0); LYMPH % 25.3 % (24.0-44.0); MEAN CORPUSCULAR HEMOGLOBIN 33.9 pg (27.0-33.0); MEAN CORPUSCULAR HGB CONC 32.3 g/dl (32.0-36.5); MEAN CORPUSCULAR VOLUME 105.1 fl (80.0-96.0); MONO # 0.2 10^3/uL (0.0-0.8); NEUTROPHILS # 1.7 10^3/uL (1.5-8.5); NEUTROPHILS % 62.1 % (36.0-66.0); RED BLOOD COUNT 2.74 10^6/uL (4.00-5.40); WHITE BLOOD COUNT 2.7 10^3/uL (4.0-10.0)
[2023-07-30 06:46] LABS: INR 1.52; PROTHROMBIN TIME 17.8 SECONDS (12.5-14.5)
[2023-07-30 06:47] LABS: PARTIAL THROMBOPLASTIN TIME 39.9 SECONDS (24.8-34.2)
[2023-07-30 07:04] LABS: CALCIUM LEVEL 7.9 MG/DL (8.3-10.6); CREATININE FOR GFR 1.41 MG/DL (0.55-1.30); GLOMERULAR FILTRATION RATE 37.9 (>32); POTASSIUM SERUM 3.1 MMOL/L (3.5-5.1)
[2023-07-30 07:23] LABS: PLATELET COUNT, AUTOMATED 81 10^3/uL (150-450)
[2023-07-30 07:36] VITALS: O2SAT 97
[2023-07-30 07:40] VITALS: BP 118/58; TEMP 97
== END 2023-07-30 08:06 | disposition home or self-care (01) ==
LOC: M ED 04:36
DX: S01.81XA Laceration without foreign body of other part of head, initial encounter (principal); W19.XXXA Unspecified fall, initial encounter; Y92.122 Bedroom in nursing home as the place of occurrence of the external cause; E11.9 Type 2 diabetes mellitus without complications; I10 Essential (primary) hypertension; Z66 Do not resuscitate; Z79.899 Other long term (current) drug therapy; Z88.0 Allergy status to penicillin; Z88.8 Allergy status to other drugs, medicaments and biological substances

== ENCOUNTER → 2023-07-30 | Outpatient (REF) | payer MEDICARE ==
[2023-07-30 10:44] LABS: HEMATOCRIT 29.5 % (36.0-47.0); HEMOGLOBIN 9.3 g/dl (12.0-15.5); MEAN CORPUSCULAR HEMOGLOBIN 33.5 pg (27.0-33.0); MEAN CORPUSCULAR HGB CONC 31.5 g/dl (32.0-36.5); MEAN CORPUSCULAR VOLUME 106.1 fl (80.0-96.0); RED BLOOD COUNT 2.78 10^6/uL (4.00-5.40); WHITE BLOOD COUNT 3.2 10^3/uL (4.0-10.0)
[2023-07-30 10:45] LABS: PLATELET COUNT, AUTOMATED 95 10^3/uL (150-450)
[2023-07-30 11:08] LABS: CALCIUM LEVEL 7.7 MG/DL (8.3-10.6); CREATININE FOR GFR 1.34 MG/DL (0.55-1.30); GLOMERULAR FILTRATION RATE 40.2 (>32); POTASSIUM SERUM 3.5 MMOL/L (3.5-5.1)
== END ==
LOC: SKLAB6 07:00
PROVIDERS: ATTEND Internal Medicine
DX: R62.7 Adult failure to thrive (principal)